=== PATIENT | female | born 1965 | race Caucasian/White ===

== ENCOUNTER 2018-08-04 18:02 | Observation (INO) ==
[2018-08-04 23:06] LABS: Basophils # 0.1 K/mcL (0.0-0.2); Basophils % 0.4 %; Eosinophils # 0.2 K/mcL (0.0-0.6); Eosinophils % 1.7 %; Hematocrit 33.8 % (35.3-44.9); Hemoglobin 11.1 g/dL (11.5-15.4); Immature Granulocytes % 0.5 % (0-4); Lymphocytes # 2.4 K/mcL (0.6-4.6); Lymphocytes % 18.2 %; Mean Corpuscular HGB Conc 32.8 g/dL (31.6-35.5); Mean Corpuscular Hemoglobin 33.9 pg (28.0-33.3); Mean Corpuscular Volume 103.4 fL (83.0-100.0); Monocytes # 0.4 K/mcL (0.0-1.3); Monocytes % 3.2 %; Neutrophils # 10.1 K/mcL (1.6-8.9); Platelet Count 237 K/mcL (140-400); Red Blood Count 3.27 M/mcL (3.82-4.97); Red Cell Distribution Width 14.6 % (11.5-14.5)
[2018-08-04 23:24] LABS: Calcium 9.7 mg/dL (8.6-10.3); Potassium 3.8 mEq/L (3.5-5.1)
[2018-08-04] MEDS ORDERED: Acetaminophen 325 MG TABLET PO PRN (23:29)
[2018-08-04] MEDS ORDERED: Naloxone 0.4 MG/ML INJ IVP PRN (23:29)
[2018-08-04] MEDS ORDERED: Ondansetron ODT 4 MG TAB.RAPDIS SL PRN (23:29)
--- NOTE | 2018-08-04 23:37 | Internal Med History&Physical ---
Date of Encounter: 08/05/18 Time of Encounter: 23:33 Internal Medicine - H&P: HPI Chief complaint: dizzy History of present illness: Ms. Constantino is a 53 year old female hx ESRD and treatment resistant HTN presented to [facility] for dizziness. Associated symptoms of blurry vision and heated feeling was sudden onset one hour after taking her four anti- hypertension medications . She has had one day of decreased energy, diffuse muscle weakness,and fatigue with increase in sleeping. Also sharp shoulder pain radiating from left to right. Denies syncopal episodes or falls. In ED, found to have BP 91/47 improved after NS bolus of 500ml. HR 67, RR18 and 98% RA. WBC 13.8 and HgB 11. CMP with Scr 11.3 and K 4. Completed UA and CT chest but no reports sent. EKG was read as NSR with no acute changes. PMHx includes HLD, anemia, and TRENTON refuses CPAP. [facility] is currently treating her for hematuria due to multiple renal calculi and recurrent pyelonephritis that has been asymptomatic in the past. States her most recent urine has not been dark. Former smoker quit 2-3 years ago. EtOH once a year, and denies illicit drug use. FMHx in mother of CKD, HTN, angina and arrhythmia. Past Med Surg Social Fam HX - Past Medical History Medical history: GERD, hyperlipidemia, hypertension Additional medical history: QUIT SMOKING 07/2015 Psychiatric history: no psych history - Past Surgical History Surgical History: other Additional surgical history: pd cath placement. 01/26/17 DX HYSTEROSCOPY/D&C @ [facility]/DR MAYS - Social History Smoking Status: Former smoker Smokeless Tobacco Status: No Alcohol use: none Drug use: none Internal Medicine - H&P: Meds Atorvastatin [Lipitor] 20 mg PO DAILY 11/09/15 [History] hydrALAZINE [HydrALAZINE] 100 mg PO Q8HR 11/09/15 [History] Calcitriol [Rocaltrol] 0.5 mcg PO QMWF 04/23/16 [History] cloNIDine HCl [CloNIDine HCl] 0.2 mg PO Q8H 04/23/16 [History] Furosemide [Lasix] 80 mg PO DAILY 01/26/17 [History] Gentamicin Sulfate 1 appl TP DAILY 01/26/17 [History] Carvedilol 12.5 mg PO DAILY 08/04/18 [History] Epoetin Elfego [Epogen] 1 unit SQ QWEEK 08/04/18 [History] Ferrous Sulfate [Iron] 1 tab PO BID 08/04/18 [History] Folic Acid/Vit B Complex and C [Dialyvite Tablet] 3,000 mg PO DAILY 08/04/18 [ History] Losartan/Hydrochlorothiazide [Losartan-Hctz 100-25 mg Tab] 1 tab PO DAILY [History] Sucroferric Oxyhydroxide [Velphoro] 1 tab PO Q8H 08/04/18 [History] 3 Allergy/AdvReac Type Severity Reaction Status Date / Time celecoxib [From Celebrex] Allergy Nausea Verified 01/26/17 13:25 All Systems PM: A 10-system review of systems was performed and is negative for pertinent findings except as documented above in the HPI. - Constitutional Constitutional: fatigue, no chills, no fever(s), no lethargy - EENT Eyes: blurry vision, no loss of vision, no tunnel vision - Cardiovascular Cardiovascular ROS IM: lightheadedness, no chest pain, no dyspnea, no edema, no palpitations, no syncope - Respiratory Respiratory: no cough, no dyspnea, no wheezing - Gastrointestinal Gastrointestinal: no cramping, no diarrhea, no nausea, no vomiting - Genitourinary Genitourinary: no difficulty urinating, no difficulty voiding, no dysuria, no hematuria, no urinary frequency - Musculoskeletal Musculoskeletal ROS IM: arthralgias, muscle cramps, muscle weakness, no numbness , no tingling - Neurological Neurological ROS: no confusion, no frequent falls, no headache(s) - Constitutional Vitals: Temp Pulse Resp BP Pulse Ox 97.8 F 54 17 157/78 100 08/04/18 20:52 08/04/18 20:52 08/04/18 20:52 08/04/18 20:52 08/04/18 20:52 General appearance: Present: cooperative, A&O X 3, no acute distress, obese, answers questions appropriately Exam: laying comfortably in bed - Head Head exam: Present: atraumatic, normocephalic - ENT ENT exam: Present: mucous membranes moist, normal oropharynx - Respiratory Respiratory exam: Present: CTAB. Absent: rales, wheezes - Cardiovascular Cardiovascular exam: Present: +S1, +S2, systolic murmur. Absent: bradycardia, tachycardia - GI/Abdominal GI/Abdominal exam: Present: distended, normal bowel sounds. Absent: guarding, mass, rigid, tenderness, no peritoneal signs - Extremities Exam Extremities exam: Present: full ROM, normal inspection, radial pulses palpable and symmetrical. Absent: pedal edema, tenderness - Back Exam Back exam: Present: full ROM, normal inspection. Absent: CVA tenderness (L), CVA tenderness (R), vertebral tenderness - Psychiatric Psychiatric exam: Present: normal affect, normal mood - Skin Skin exam: Present: normal color. Absent: erythema, excoriation, warm Additional comments: PD site clean with out erythema or discharge, is not tender Internal Med - H&P Results - Labs CBC & Chem 7: 08/04/18 22:48 08/04/18 22:48 Labs: Short CBC 08/04/18 Range/Units 22:48 WBC 13.2 H (4.3-11.1) K/mcL Hgb 11.1 L (11.5-15.4) g/dL Hct 33.8 L (35.3-44.9) % Plt Count 237 (140-400) K/mcL Neutrophils # 10.1 H (1.6-8.9) K/mcL BMP 08/04/18 22:48 Sodium 135 L Potassium 3.8 Chloride 100 Carbon Dioxide 22 L BUN 64 H Creatinine 10.95 H Glucose 118 H Calcium 9.7 - Assessment and plan (1) ESRD (end stage renal disease) Current Visit: Yes Status: Acute Assessment and plan: Scr10.95 with baseline 7-8. Normal potassium 3.8 - Per Nephrology's recommendations Dr Hutton; skip PD tonight due to episodic hypotension. Kalemia is normal and this does not need manual exchange. - Please allow patient to take her own vitamins from home (2) Hypotension Current Visit: Yes Status: Acute Assessment and plan: Possibly due to combination PD and multiple antihypertensive medications. - hold clonidine, lasix 80, hydralazine 100mg q 8, and losartan - HCTZ - nephrology consulted- will appreciate recommendations Qualifiers: Hypotension type: hypotension due to drug Qualified Code(s): I95.2 - Hypotension due to drugs (3) Hypertension Current Visit: Yes Status: Acute Qualifiers: Hypertension type: essential hypertension Qualified Code(s): I10 - Essential (primary) hypertension (4) Anemia Current Visit: Yes Status: Acute Assessment and plan: Due to ESRD. HgB 11.1 with baseline of 9-10. Patient will receive weekly EOP when due. - monitor with repeat CBCs Qualifiers: Anemia type: unspecified type Qualified Code(s): D64.9 - Anemia, unspecified (5) Elevated WBC count Current Visit: Yes Status: Acute Assessment and plan: WBC 13.0 with no apparent source of infection possibly reactive to PD. Given hsitory of recurrent asymptomatic pylonephritis and knwon presence of nephrolithiasis will obtain UA. Does not meet SIRs - chest CT at [facility] - repeat UA Qualifiers: Leukocytosis type: unspecified Qualified Code(s): D72.829 - Elevated white blood cell count, unspecified (6) Back pain Current Visit: Yes Status: Acute Assessment and plan: Unknown etiology Qualifiers: Back pain location: back pain in other location Qualified Code(s): M54.9 - Dorsalgia, unspecified; G89.29 - Other chronic pain (7) DVT prophylaxis Current Visit: Yes Status: Acute Assessment and plan: scds - Time Spent With Patient Total time spent is greater than 50% in coordination of care (as documented) at patient's floor/unit and/or counseling patient:
[2018-08-04] MEDS: SUCROFERRIC OXYHYDROXIDE PO SCH (23:39)
[2018-08-05 00:31] LABS: Bilirubin,Urine Negative (Negative); Clarity,Urine Cloudy (Clear); Color,Urine Yellow (Yellow); Glucose,Urine (UA) Normal (Normal)
[2018-08-05 00:32] LABS: Blood,Urine Negative (Negative); Hyaline Casts,Urine None Seen per lpf (None-Few); Ketones,Urine Negative (Negative); Leukocyte Esterase,Urine Large (Negative); Nitrite,Urine Negative (Negative); PH,Urine 6.5 pH Units (5.0-8.0); Protein,Urine 30 mg/dL (Neg-Trace); Specific Gravity,Urine 1.006 (1.010-1.025); Squamous Epithelial Cell,Urine Many per lpf (None-Few); Urobilinogen,Urine Normal (Normal); WBC,Urine TNTC per hpf (0-3)
[2018-08-05 00:33] LABS: Bacteria,Urine Many per hpf (None-Few)
[2018-08-05] MEDS: Cholecalciferol (D-3) 1,000 UNIT TABLET PO SCH (07:59)
[2018-08-05] MEDS: SUCROFERRIC OXYHYDROXIDE PO SCH ×2 (08:00→12:17)
[2018-08-05] MEDS: DIALYVITE PO SCH (08:01)
--- NOTE | 2018-08-05 08:31 | Internal Med Progress Note ---
<AlvaradoLynn colonroque - Last Filed: 08/05/18 08:55> Hospitalist Progress Note - Encounter Date of Encounter: 08/05/18 Time of Encounter: 08:31 - Subjective Interval History: 53-year-old female evaluated at bedside. She denies nausea, vomiting, diarrhea , fever, chills, chest pain, shortness of breath. She denies dysuria, suprapubic pain. - Exam Vitals: Temp Pulse Resp BP Pulse Ox 97.9 F 59 16 123/62 95 08/05/18 07:20 08/05/18 07:20 08/05/18 07:20 08/05/18 07:20 08/05/18 07:20 Exam: Gen.: alert and oriented X3, no acute distress, laying comfortably in bed CV: regular rate and rhythm, no murmurs, rubs, gallops. Respiratory: clear to auscultation bilaterally abdomen: soft, nondistended, nontender, bowel sounds present extremities: no cyanosis or edema - Assessment and Plan (1) Hypotension Current Visit: Yes Status: Acute Assessment and Plan: 53-year-old female with history of ESRD on peritoneal dialysis presents with hypotension and dizziness, blurry vision after taking her blood pressure meds at home. In emergency department, her blood pressure was noted to be 91/47. Home blood pressure medications include hydralazine, clonidine, losartan/ hydrochlorothiazide. is also on Lasix. Current blood pressure normal. Of note, patient does have history of sleep apnea but refuses CPAP. Plan: appreciate nephrology recommendations regarding blood pressure medication adjustment educated on importance of CPAP use to prevent further hypertension continue to hold blood pressure medications. (2) Leukocytosis Current Visit: Yes Status: Acute Assessment and Plan: WBC of 14.3 patient is not currently meets sepsis criteria. Urinalysis sample was contaminated, showed many bacteria, WBC, leukocyte esterase-likely asmptomatic bacteriuria. Plan: 2V view chest x-ray pending repeat urinalysis with straight catheterization repeat UA with reflex culture continue to monitor (3) ESRD (end stage renal disease) Current Visit: Yes Status: Acute Assessment and Plan: Patient is on peritoneal dialysis at home. Per nephrology recommendations, dialysis was held last night. Plan: await further nephrology recommendations regarding dialysis (4) Anemia Current Visit: Yes Status: Acute Assessment and Plan: Hemoglobin currently around baseline. Likely multifactorial with anemia of chronic disease in setting of ESRD, history of iron deficiency anemia. MCV 103.8 Plan: continue iron supplementation check B-12 and folate levels EPO per nephrology (5) Asymptomatic bacteriuria Current Visit: Yes Status: Acute Assessment and Plan: Plan as above (6) DVT prophylaxis Current Visit: Yes Status: Acute Assessment and Plan: Heparin SQ (7) TRENTON (obstructive sleep apnea) Current Visit: Yes Status: Acute Assessment and Plan: Patient refuses CPAP, education given - Time Spent with Patient Total time spent is greater than 50% in coordination of care (as documented) at patient's floor/unit and/or counseling patient: Internal Medicine: Result - Labs CBC & Chem 7: 08/04/18 22:48 08/04/18 22:48 Labs: Short CBC 08/04/18 Range/Units 22:48 WBC 13.2 H (4.3-11.1) K/mcL Hgb 11.1 L (11.5-15.4) g/dL Hct 33.8 L (35.3-44.9) % Plt Count 237 (140-400) K/mcL Neutrophils # 10.1 H (1.6-8.9) K/mcL BMP 08/04/18 22:48 Sodium 135 L Potassium 3.8 Chloride 100 Carbon Dioxide 22 L BUN 64 H Creatinine 10.95 H Glucose 118 H Calcium 9.7 Urine 08/05/18 Range/Units 00:05 Urine Color Yellow (Yellow) Urine Clarity Cloudy A (Clear) Urine pH 6.5 (5.0-8.0) pH Units Ur Specific Purchase 1.006 L (1.010-1.025) Urine Protein 30 H (Neg-Trace) mg/dL Urine Glucose (UA) Normal (Normal) mg/dL Consult Discharge Plan - Plan Referrals: NONE,PCP [Primary Care Provider] - <Daksha Lopez - Last Filed: 08/05/18 15:35> Hospitalist Progress Note - Encounter Date of Encounter: 08/05/18 - Exam Vitals: Temp Pulse Resp BP Pulse Ox 98.2 F 58 16 166/79 98 08/05/18 14:56 08/05/18 14:56 08/05/18 14:56 08/05/18 14:56 08/05/18 14:56 - Assessment and Plan (1) ESRD (end stage renal disease) Current Visit: Yes Status: Chronic (2) Hypotension Current Visit: Yes Status: Acute (3) DVT prophylaxis Current Visit: Yes Status: Acute (4) Anemia Current Visit: Yes Status: Acute (5) Leukocytosis Current Visit: Yes Status: Acute (6) Asymptomatic bacteriuria Current Visit: Yes Status: Acute (7) TRENTON (obstructive sleep apnea) Current Visit: Yes Status: Acute - Time Spent with Patient Total time spent is greater than 50% in coordination of care (as documented) at patient's floor/unit and/or counseling patient: Internal Medicine: Result - Labs CBC & Chem 7: 08/05/18 08:39 08/05/18 08:39 Labs: Short CBC 08/04/18 08/05/18 Range/Units 22:48 08:39 WBC 13.2 H 14.3 H (4.3-11.1) K/mcL Hgb 11.1 L 10.9 L (11.5-15.4) g/dL Hct 33.8 L 33.1 L (35.3-44.9) % Plt Count 237 241 (140-400) K/mcL Neutrophils # 10.1 H 11.1 H (1.6-8.9) K/mcL BMP 08/04/18 08/05/18 22:48 08:39 Sodium 135 L 136 Potassium 3.8 4.0 Chloride 100 99 Carbon Dioxide 22 L 22 L BUN 64 H 71 H Creatinine 10.95 H 11.29 H Glucose 118 H 152 H Calcium 9.7 9.9 Urine 08/05/18 08/05/18 Range/Units 00:05 12:57 Urine Color Yellow Yellow (Yellow) Urine Clarity Cloudy A Cloudy A (Clear) Urine pH 6.5 6.5 (5.0-8.0) pH Units Ur Specific Purchase 1.006 L 1.011 (1.010-1.025) Urine Protein 30 H 100 H (Neg-Trace) mg/dL Urine Glucose (UA) Normal Normal (Normal) mg/dL - Impressions Impressions Chest X-Ray 08/05/18 09:15 IMPRESSION: No acute cardiopulmonary process. D/ / Anatoliy Joe MD / Anatoliy Joe MD Interpreting Provider: Anatoliy Joe MD - Attending Attestation I examined this patient and my medical decision-making was reviewed with the Resident Physician Dr. Orozco. I agree with the documented findings, disposition and treatment plan as described except to the extent set forth below. 53-year-old female with history of ESRD on peritoneal dialysis presents with hypotension and dizziness, blurry vision after taking her blood pressure meds at home. Patient was admitted in the hospital, and held all her hypertensive medications. Her blood pressure improved today. Patient denied of any abdominal pain / chest pain/ shortness of breath. It reviewed all her blood pressure medications with wet pan operator, going to discontinue clonidine and hydralazine. Will resume losartan and low dose of Lasix. Continue close monitoring for today. Gen: A, Ao x3 Chest: diminished breath sounds bilaterally, no wheezing heart: S1 S2+ <Aileen Orozco - Last Filed: 08/05/18 08:55> (1) Hypotension Qualifiers: Hypotension type: hypotension due to drug Qualified Code(s): I95.2 - Hypotension due to drugs (2) Leukocytosis Qualifiers: Leukocytosis type: unspecified Qualified Code(s): D72.829 - Elevated white blood cell count, unspecified (4) Anemia Qualifiers: Anemia type: unspecified type Qualified Code(s): D64.9 - Anemia, unspecified <ThallapanChavo youssefbu - Last Filed: 08/05/18 15:35> (2) Hypotension Qualifiers: Hypotension type: hypotension due to drug Qualified Code(s): I95.2 - Hypotension due to drugs (4) Anemia Qualifiers: Anemia type: unspecified type Qualified Code(s): D64.9 - Anemia, unspecified (5) Leukocytosis Qualifiers: Leukocytosis type: unspecified Qualified Code(s): D72.829 - Elevated white blood cell count, unspecified
[2018-08-05 09:08] LABS: Basophils # 0.1 K/mcL (0.0-0.2); Basophils % 0.3 %; Eosinophils # 0.3 K/mcL (0.0-0.6); Eosinophils % 1.9 %; Hematocrit 33.1 % (35.3-44.9); Hemoglobin 10.9 g/dL (11.5-15.4); Immature Granulocytes % 0.3 % (0-4); Lymphocytes # 2.3 K/mcL (0.6-4.6); Lymphocytes % 15.7 %; Mean Corpuscular HGB Conc 32.9 g/dL (31.6-35.5); Mean Corpuscular Hemoglobin 34.2 pg (28.0-33.3); Mean Corpuscular Volume 103.8 fL (83.0-100.0); Mean Platelet Volume 9.1 fL (9.4-12.4); Monocytes # 0.6 K/mcL (0.0-1.3); Monocytes % 3.8 %; Neutrophils # 11.1 K/mcL (1.6-8.9); Platelet Count 241 K/mcL (140-400); Red Blood Count 3.19 M/mcL (3.82-4.97); Red Cell Distribution Width 14.4 % (11.5-14.5)
[2018-08-05 09:25] LABS: % Iron Saturation 32 % (15-50); Iron 70 mcg/dL (50-170); Transferrin 158 mg/dL (203-362)
[2018-08-05 09:26] LABS: Calcium 9.9 mg/dL (8.6-10.3)
[2018-08-05 09:55] LABS: Vitamin B12 1068 pg/mL (250-1100)
[2018-08-05 10:11] LABS: Ferritin 851 ng/mL (10-120)
[2018-08-05 10:29] LABS: Hepatitis B Surface Antigen Nonreactive (Nonreactive)
[2018-08-05] MEDS: *HR* Heparin 5,000 UNIT/ML VIAL SQ SCH ×2 (10:54→17:45)
[2018-08-05 11:02] LABS: Folate > 22.3 ng/mL (3.0-16.0)
--- NOTE | 2018-08-05 11:42 | Nephrology Consult Note ---
Date of Encounter: 08/05/18 Time of Encounter: 10:30 Assessment and Plan (1) Hypotension Current Visit: Yes Status: Acute Suspect multifactorial etiology from UF of PD and as a possible consequence of with her longstanding regimen for resistant HTN. Will not resume Clonidine, and will not resume HCTZ or Hydralazine. Restart Losartan (she has some residual renal function and still makes urine; no recent hyperkalemia) at 50mg po daily (not at 100mg); continue Carvedilol 12.5mg po bid (my [facility] notes show it's typically BID on her home dosing), and lasix but at 40mg po daily. If asymptomatic by tomorrow then reasonable for D/C and I'd be happy to help further titrate her antihypertensive medications as an outpt. Mariam I've ordered her PD via cycler and to use Dianeal 1.5%, which does not remove as much volume. Qualifiers: Hypotension type: hypotension due to drug Qualified Code(s): I95.2 - Hypotension due to drugs (2) ESRD (end stage renal disease) Current Visit: Yes Status: Chronic I reviewed her [facility] records in detail and ordered PD cycler tonight to similarly mirror her home/typical PD regimen: 4 fills at 2000mL ove 8.5-9hr. Last night when she presented, I had held her PD d/t the recent dizziness. (3) Hypertension Current Visit: Yes Status: Chronic Hx of Resistant HTN in the setting of ESRD Qualifiers: Hypertension type: essential hypertension Qualified Code(s): I10 - Essential (primary) hypertension (4) Secondary hyperparathyroidism (of renal origin) Current Visit: Yes Status: Chronic Continue her Calcitriol and home Velphoro for Hyperphosphatemia. (5) Anemia due to stage 5 chronic kidney disease Current Visit: Yes Status: Chronic Goal Hgb is 10-11, and will not add EPO at this time, as she just recently received her outpt dosing. Continue her home Iron pills. (6) Left renal atrophy Current Visit: Yes Status: Chronic In Jun, she was noted to have a large left renal calculus and associated left renal atrophy. She has seen [facility] and is being evaluated for a complex left nephrectomy surgery from the retroperitonium so as to avoid interfering with the anterior/periotoneal space (and therefore she could continue PD -- she has previously verbalized that she would never ever want HD, even temporarily). Her UA is likely to be contaminated and she has no symptoms of a UTI and has never had Peritonitis nor active fibrin or other signs of peritonitis, so I do not see the utility of a straight cath for UA at this point. The pt said she was told she was going to have that test performed. Yes a straight cath UA is the most accurate to avoid squamous cells/contamination, but being asymptomatic with a known nidus (i.e. the left renal calculus), then would not straight cath her at this time. (7) Renal calculus, left Current Visit: Yes Status: Chronic History of Present Illness - Reason for Consult Consult date: 08/04/18 end stage renal disease Requesting physician: [place] Patton - Chief Complaint Dizziness - History of Present Illness Trinity Constantino is a very pleasant 53 y/o female well-known to me with a pmh of ESRD on CCPD, Resistant HTN, Left Renal Atrophy/Large Calculus, SHPT, Hyperphosphatemia, T2DM and et al who presented with symptomatic dizziness while at work. She was transferred last night to [facility]. She last completed PD two night ago, and she denied seeing Fibrin, or having Abd pain or recent peritonitis. She has been seeing [facility] Dr. Holder for left renal atrophy/large calculus and was recent referred to [facility] for second opinion in the coming weeks. I also logged into the [employer] EHR mobile obi and reviewed her weights, BPs and see that she's lost a few kgs over the last 3-4 months. She has been on a salazar regimen for resistant HTN for quite sometime. She still makes urine, but not as much as a few years ago, she affirmed. No recent swelling, she said. Her vision was affected but this and the dizziness has improved while hold BP meds and PD last night (I spoke with the Night Hospitalist last night and recommended holding PD). She did not affirm CP, N/V this AM or dysuria. Her Troponins were negative. Discussed with the Hospitalist today in detail. Past Med Surg Social Fam HX - Past Medical History Medical history: GERD, hyperlipidemia, hypertension Additional medical history: QUIT SMOKING 07/2015 Psychiatric history: no psych history - Past Surgical History Surgical History: other Additional surgical history: pd cath placement. 01/26/17 DX HYSTEROSCOPY/D&C @ [facility]/DR MAYS - Social History Smoking Status: Former smoker Smokeless Tobacco Status: No Alcohol use: none Drug use: none Medications and Allergies Atorvastatin [Lipitor] 20 mg PO DAILY 11/09/15 [History] hydrALAZINE [HydrALAZINE] 100 mg PO Q8HR 11/09/15 [History] Calcitriol [Rocaltrol] 0.5 mcg PO QMWF 04/23/16 [History] cloNIDine HCl [CloNIDine HCl] 0.2 mg PO Q8H 04/23/16 [History] Furosemide [Lasix] 80 mg PO DAILY 01/26/17 [History] Gentamicin Sulfate 1 appl TP DAILY 01/26/17 [History] Carvedilol 12.5 mg PO DAILY 08/04/18 [History] Epoetin Elfego [Epogen] 1 unit SQ QWEEK 08/04/18 [History] Ferrous Sulfate [Iron] 1 tab PO BID 08/04/18 [History] Folic Acid/Vit B Complex and C [Dialyvite Tablet] 3,000 mg PO DAILY 08/04/18 [ History] Losartan/Hydrochlorothiazide [Losartan-Hctz 100-25 mg Tab] 1 tab PO DAILY [History] Sucroferric Oxyhydroxide [Velphoro] 1 tab PO Q8H 08/04/18 [History] 3 Allergy/AdvReac Type Severity Reaction Status Date / Time celecoxib [From Celebrex] Allergy Nausea Verified 01/26/17 13:25 Review of Systems All Systems: reviewed and no additional remarkable complaints except as stated Exam - Vital Signs Vital signs: Initial Vital Signs Temp Pulse Resp BP Pulse Ox 97.8 F 54 17 157/78 100 08/04/18 20:52 08/04/18 20:52 08/04/18 20:52 08/04/18 20:52 08/04/18 20:52 Vital Signs - Last 8 Hours Temp Pulse Resp BP Pulse Ox 08/05/18 10:37 98.2 F 61 16 132/62 98 08/05/18 07:20 97.9 F 59 16 123/62 95 08/05/18 04:03 98.1 F 69 17 136/62 97 Intake and Output 08/04/18 08/05/18 08/05/18 23:59 07:59 15:59 Intake Total 0 / 0 420 / 420 Output Total 275 / 275 150 / 150 Balance -275 / -275 -150 / -150 420 / 420 Intake: Oral 0 / 0 420 / 420 Output: Urine 275 / 275 150 / 150 Other: Meal Breakfast Percent of Meal Consumed 35% # Voids 1 Weight 75.523 kg - General Appearance General appearance: well-developed, well-nourished, appears started age EENT: ATNC, PERRL, mucous membranes moist Neck: no carotid bruit, supple Respiratory: clear Cardiology: no edema, regular rate, regular rhythm, normal S1, normal S2 - Dialysis Access Additional Comments: PD catheter without exitsite discomfort or erythema Gastrointestinal: normoactive bowel sounds, no tenderness, no guarding, obese Integumentary: no rash, warm and dry Neurologic: no focal deficit, no asterixis, alert and oriented x3 Musculoskeletal: no deformities, no erythema, no cyanosis, no clubbing Psychiatric: mood/affect appropriate, cooperative Results - Lab Results 08/05/18 08:39 08/05/18 08:39 Most recent lab results Calcium 9.9 mg/dL (8.6-10.3) 08/05/18 08:39 I reviewed the labs, vitals, med lists, progress notes, and also logged into the [employer] Mobile [employer] and reviewed her labs, vitals and encounters at [facility]. Consult Discharge Plan - Plan Referrals: NONE,PCP [Primary Care Provider] -
[2018-08-05] MEDS ORDERED: Perit. Dialysis with Dex 1.5 % 12,000 ML PERITONEAL ONE ×2 (12:03→22:00)
[2018-08-05 13:09] LABS: Bilirubin,Urine Negative (Negative); Blood,Urine Negative (Negative); Clarity,Urine Cloudy (Clear); Color,Urine Yellow (Yellow); Glucose,Urine (UA) Normal (Normal); Ketones,Urine Negative (Negative); Leukocyte Esterase,Urine Large (Negative); Nitrite,Urine Negative (Negative); PH,Urine 6.5 pH Units (5.0-8.0); Protein,Urine 100 mg/dL (Neg-Trace); Specific Gravity,Urine 1.011 (1.010-1.025); Urobilinogen,Urine Normal (Normal)
[2018-08-05 13:13] LABS: Bacteria,Urine Many per hpf (None-Few); Hyaline Casts,Urine None Seen per lpf (None-Few); Squamous Epithelial Cell,Urine Many per lpf (None-Few); WBC,Urine 50-100 per hpf (0-3)
[2018-08-05] MEDS: Furosemide 40 MG TABLET PO SCH (13:56)
[2018-08-05] MEDS: Gentamicin Oint 15 GM TUBE TP SCH (16:19)
[2018-08-06] MEDS: *HR* Heparin 5,000 UNIT/ML VIAL SQ SCH (06:07)
[2018-08-06 06:14] LABS: Basophils # 0.1 K/mcL (0.0-0.2); Basophils % 0.4 %; Eosinophils # 0.3 K/mcL (0.0-0.6); Eosinophils % 1.9 %; Hematocrit 36.5 % (35.3-44.9); Hemoglobin 12.1 g/dL (11.5-15.4); Immature Granulocytes % 0.5 % (0-4); Lymphocytes # 2.2 K/mcL (0.6-4.6); Lymphocytes % 16.4 %; Mean Corpuscular HGB Conc 33.2 g/dL (31.6-35.5); Mean Corpuscular Volume 102.5 fL (83.0-100.0); Mean Platelet Volume 9.1 fL (9.4-12.4); Monocytes # 0.5 K/mcL (0.0-1.3); Monocytes % 3.8 %; Neutrophils # 10.4 K/mcL (1.6-8.9); Platelet Count 265 K/mcL (140-400); Red Blood Count 3.56 M/mcL (3.82-4.97); Red Cell Distribution Width 14.6 % (11.5-14.5)
[2018-08-06 06:31] LABS: Calcium 10.2 mg/dL (8.6-10.3); Potassium 3.7 mEq/L (3.5-5.1)
--- NOTE | 2018-08-06 07:26 | Discharge Summary ---
<Aileen Orozco - Last Filed: 08/06/18 12:07> - NOTES TO OUTPATIENT PROVIDER Notes to Outpatient Provider: please continue to titrate blood pressure medications as outpatient. thank you. Orders not resulted at time of discharge: Pending orders 08/04/18 23:29 ECG 12 lead ECG [ECG] Stat 08/05/18 08:41 Hepatitis B Surface Antibody Stat Hepatitis B Surface Antigen Stat Date of Encounter: 08/06/18 Time of Encounter: 07:21 - Discharge Diagnosis (1) Hypotension Priority: Primary Status: Acute Qualifiers: Hypotension type: hypotension due to drug Qualified Code(s): I95.2 - Hypotension due to drugs (2) Leukocytosis Priority: Secondary Status: Acute Qualifiers: Leukocytosis type: unspecified Qualified Code(s): D72.829 - Elevated white blood cell count, unspecified (3) ESRD (end stage renal disease) Priority: Secondary Status: Chronic (4) Anemia Priority: Secondary Status: Acute Qualifiers: Anemia type: unspecified type Qualified Code(s): D64.9 - Anemia, unspecified (5) Asymptomatic bacteriuria Priority: Secondary Status: Acute (6) DVT prophylaxis Priority: Secondary Status: Acute (7) TRENTON (obstructive sleep apnea) Priority: Secondary Status: Acute Hospital course: Ms. Constantino is a 53 year old female with past medical history of ESRD on peritoneal dialysis, treatment resistant hypertension, GERD, hyperlipidemia, TRENTON (refuses to wear CPAP), multiple renal stones and recurrent pyelonephritis that has been asymptomatic in the past. Patient arrived to [facility] on 08/04/18 with chief complaint of dizziness, blurry vision, heated feeling that was sudden onset about one hour after taking her for antihypertensive medications. She also reported decreased energy, diffuse muscle weakness and fatigue. After arrival to the emergency department, she was found to have blood pressure of 91/47 that improved after a normal saline bolus of 500 mL. She was admitted for further management and workup. Consult to nephrology was made, and her peritoneal dialysis was held the 1st night she was in the hospital. Nephrology has made the following recommendations regarding changes in her pressure regimen: stopped clonidine stop hydrochlorothiazide stop hydralazine restart losartan but at 50 mg PO daily continue carvedilol 12.5 mg PO b.i.d. continue Lasix but at 40 mg PO daily Patient was asymptomatic after the changes have been made to her medications. She does have chronic history of anemia for which she takes Epo. 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 Patient did have slight leukocytosis during her hospitalization. Chest x-ray was normal, patient did not have any signs of abdominal pain, and she did not meet sepsis criteria. Her urinalysis was a contaminated sample, and she does have a history of chronic pyelonephritis. She had no symptoms of UTI. Patient was instructed to continue her normally scheduled peritoneal dialysis. She will follow up with nephrology and her primary care provider outpatient for further titration of her blood pressure medications as needed. Discharge discussed with: patient - Time Spent with Patient Total time spent providing and/or coordinating discharge services: Less than 30 minutes - Discharge Medications Prescriptions: Carvedilol 12.5 mg PO BID #60 tab Furosemide [Lasix] 40 mg PO DAILY #30 tablet hydrALAZINE [HydrALAZINE] 25 mg PO TID #90 tablet Losartan Potassium [Cozaar] 50 mg PO DAILY #30 tab Home Medications: Atorvastatin [Lipitor] 20 mg PO DAILY 11/09/15 [History] Calcitriol [Rocaltrol] 0.5 mcg PO QMWF 04/23/16 [History] Gentamicin Sulfate 1 appl TP DAILY 01/26/17 [History] Epoetin Elfego [Epogen] 1 unit SQ QWEEK 08/04/18 [History] Ferrous Sulfate [Iron] 1 tab PO BID 08/04/18 [History] Folic Acid/Vit B Complex and C [Dialyvite Tablet] 3,000 mg PO DAILY 08/04/18 [ History] Sucroferric Oxyhydroxide [Velphoro] 1 tab PO Q8H 08/04/18 [History] Carvedilol 12.5 mg PO BID #60 tab 08/06/18 [Rx] Furosemide [Lasix] 40 mg PO DAILY #30 tablet 08/06/18 [Rx] Losartan Potassium [Cozaar] 50 mg PO DAILY #30 tab 08/06/18 [Rx] hydrALAZINE [HydrALAZINE] 25 mg PO TID #90 tablet 08/06/18 [Rx] Allergies/Adverse Reactions: 3 Allergy/AdvReac Type Severity Reaction Status Date / Time celecoxib [From Celebrex] Allergy Nausea Verified 01/26/17 13:25 Date of admission: 08/04/18 20:38 Primary care physician: PCP NONE Consults: 08/04/18 23:32 Consult to Nephrology [CONS] Routine Consulting Provider: Kidney Margareth/PABLO/DAVIAN/TORO Reason for Consult: hypotension in PD clinic patient Call Completed: Yes 08/05/18 12:15 Consult to Dialysis [CONS] ONCE Discharging clinician: Aileen Orozco Anticipated date of discharge: 08/06/18 - Constitutional Vitals: Temp Pulse Resp BP Pulse Ox 98.1 F 75 16 177/70 98 08/06/18 04:28 08/06/18 04:28 08/06/18 04:28 08/06/18 04:28 08/06/18 04:28 General appearance: Present: cooperative, A&O X 3, no acute distress, obese, answers questions appropriately Exam: Appears to be in no acute distress. - Head Head exam: Present: atraumatic, normocephalic - Neck Neck exam general surgery: Present: supple, trachea midline - Respiratory Respiratory exam: Present: CTAB - Cardiovascular Cardiovascular exam: Present: RRR, +S1, +S2 - GI/Abdominal GI/Abdominal exam: Present: normal bowel sounds, soft. Absent: distended, tenderness - Extremities Exam Extremities exam: Absent: cyanotic, pedal edema - Neurological Exam Neurological exam: Present: alert, oriented X3, no focal deficits - Psychiatric Psychiatric exam: Present: normal affect, normal mood - Skin Skin exam: Present: intact - Patient Status Disposition: Home, Self-Care Condition: Good Functional capacity at discharge: independent ambulation Overall status at discharge: patient is back to baseline - Discharge Instructions Instructions: Hydralazine (By mouth), Hypotension (DC) Follow Up With: NONE,PCP [Primary Care Provider] - Chico Veliz DO [Partnered Physician] - Additional Instructions: Follow-up with her primary care provider within one week of discharge. Follow-up with your visual merchandising coordinator. Take all medications as prescribed. Please note that some of her blood pressure medications have been changed. Please do not take clonidine or hydrochlorothiazide or hydralazine anymore. Restart your losartan at 50mg PO daily (not 100mg); continue Carvedilol 12.5mg PO BID and take lasix 40mg PO daily. - Diet and Activity Activity: increase activity as tolerated Diet: other (renal diet) - VTE Documentation of Mechanical Device: Intermittent pneumatic compression device <Daksha Lopez - Last Filed: 08/06/18 14:14> Orders not resulted at time of discharge: Pending orders 08/04/18 23:29 ECG 12 lead ECG [ECG] Stat 08/05/18 08:41 Hepatitis B Surface Antibody Stat Hepatitis B Surface Antigen Stat Date of Encounter: 08/06/18 - Discharge Diagnosis (1) ESRD (end stage renal disease) Status: Chronic (2) Hypotension Status: Acute Qualifiers: Hypotension type: hypotension due to drug Qualified Code(s): I95.2 - Hypotension due to drugs (3) DVT prophylaxis Status: Acute (4) Anemia Status: Acute Qualifiers: Anemia type: unspecified type Qualified Code(s): D64.9 - Anemia, unspecified (5) Leukocytosis Status: Acute Qualifiers: Leukocytosis type: unspecified Qualified Code(s): D72.829 - Elevated white blood cell count, unspecified (6) Asymptomatic bacteriuria Status: Acute (7) [place] (obstructive sleep apnea) Status: Acute Hospital course: Ms. Constantino is a 53 year old female - Time Spent with Patient Total time spent providing and/or coordinating discharge services: Date of admission: 08/04/18 20:38 Primary care physician: PCP NONE Consults: 08/04/18 23:32 Consult to Nephrology [CONS] Routine Consulting Provider: Kidney Margareth/PABLO/DAVIAN/TORO Reason for Consult: hypotension in PD clinic patient Call Completed: Yes 08/05/18 12:15 Consult to Dialysis [CONS] ONCE - Constitutional Vitals: Temp Pulse Resp BP Pulse Ox 98.0 F 67 16 144/81 99 08/06/18 08:18 08/06/18 08:18 08/06/18 08:18 08/06/18 09:52 08/06/18 08:18 - Attending Attestation I examined this patient and my medical decision-making was reviewed with the Resident Physician Dr. Orozco. I agree with the documented findings, disposition and treatment plan as described except to the extent set forth below. 53-year-old female with history of ESRD on peritoneal dialysis presents with hypotension and dizziness, blurry vision after taking her blood pressure meds at home. Patient was admitted in the hospital, and held all her hypertensive medications. Her blood pressure improved today. Patient denied of any abdominal pain / chest pain/ shortness of breath. Reviewed all her blood pressure medications with visual merchandising coordinator, going to discontinue clonidine. BP still slightly elevated with Losartan, coreg and Lasix. So started Hydralazine too. medically stable to d.c home today Gen: A, Ao x3 Chest: diminished breath sounds bilaterally, no wheezing heart: S1 S2+
[2018-08-06] MEDS ORDERED: SUCROFERRIC OXYHYDROXIDE 500 MG PO SCH (08:00)
[2018-08-06] MEDS: Cholecalciferol (D-3) 1,000 UNIT TABLET PO SCH (08:14)
[2018-08-06] MEDS: Furosemide 40 MG TABLET PO SCH (08:14)
[2018-08-06] MEDS: DIALYVITE PO SCH (08:15)
[2018-08-06] MEDS: Gentamicin Oint 15 GM TUBE TP SCH (08:22)
[2018-08-06] MEDS ORDERED: hydrALAZINE 25 MG TABLET PO SCH (08:28)
[2018-08-06 09:52] VITALS: BP 144/81
--- NOTE | 2018-08-06 10:43 | Nephrology Progress Note ---
Date of Encounter: 08/06/18 Time of Encounter: 12:00 - Assessment and Plan (1) Hypotension Status: Acute Resolved. Outpt Antihypertensive Rx titration is recommended. Okay to D/C today (Tuesday), and I'll plan to work with my outpt PD nurse to assist in titration of BP meds. Thank you. Suspect multifactorial etiology from UF of PD and as a possible consequence of with her longstanding regimen for resistant HTN. Will not resume Clonidine, and will not resume HCTZ but okay start resuming slowly her routine antihypertensives, as discussed with the Hospitalist -- I agree and would resume Hydralazine. Okay to D/C from a Nephroperspective and I'd be happy to help further titrate her antihypertensive medications as an outpt via the PD Nurse Anita, who will see the pt later this week for outpt PD routine care. Qualifiers: Hypotension type: hypotension due to drug Qualified Code(s): I95.2 - Hypotension due to drugs (2) ESRD (end stage renal disease) Status: Chronic She tolerated the PD regimen last of: 4 fills at 2000mL ove 8.5-9hr. (3) Hypertension Status: Chronic Hx of Resistant HTN in the setting of ESRD. See above. Qualifiers: Hypertension type: essential hypertension Qualified Code(s): I10 - Essential (primary) hypertension (4) Secondary hyperparathyroidism (of renal origin) Status: Chronic Continue her Calcitriol and home Velphoro for Hyperphosphatemia. (5) Anemia due to stage 5 chronic kidney disease Status: Chronic Goal Hgb is 10-11, and will not add EPO at this time, as she just recently received her outpt dosing. Continue her home Iron pills. (6) Left renal atrophy Status: Chronic In Jun, she was noted to have a large left renal calculus and associated left renal atrophy. She has seen [facility] and is being evaluated for a complex left nephrectomy surgery from the retroperitonium so as to avoid interfering with the anterior/periotoneal space (and therefore she could continue PD -- she has previously verbalized that she would never ever want HD, even temporarily). (7) Renal calculus, left Status: Chronic See above. Subjective Principal diagnosis: Transient Hypotension Interval history: Pt was s/e and she did not affirm N/V/D and reported no further dizziness or visual changes. She voiced that PD went smoothly with the cycler last night and no new abd symptoms were affirmed. Objective - Vital Signs Vital signs: Vital Signs Temp Pulse Resp BP Pulse Ox 08/06/18 09:52 144/81 08/06/18 08:18 98.0 F 67 16 184/82 99 08/06/18 04:28 98.1 F 75 16 177/70 98 08/05/18 23:36 98.2 F 64 16 137/55 99 08/05/18 22:12 98.3 F 15 196/79 08/05/18 19:07 98.8 F 62 16 145/74 99 08/05/18 14:56 98.2 F 58 16 166/79 98 Intake and Output 08/05/18 08/06/18 08/06/18 23:59 07:59 15:59 Intake Total 720 / 720 Balance 720 / 720 Intake: Oral 720 / 720 Other: Meal Dinner Percent of Meal Consumed 80% # Voids 1 Weight 75 kg - General Appearance Exam: General appearance: well-developed, well-nourished, appears started age EENT: ATNC, PERRL, mucous membranes moist Neck: no carotid bruit, supple Respiratory: clear Cardiology: no edema, regular rate, regular rhythm, normal S1, normal S2 - Dialysis Access Additional Comments: PD catheter without exitsite discomfort or erythema Gastrointestinal: normoactive bowel sounds, no tenderness, no guarding, obese Integumentary: no rash, warm and dry Neurologic: no focal deficit, no asterixis, alert and oriented x3 Musculoskeletal: no deformities, no erythema, no cyanosis, no clubbing Psychiatric: mood/affect appropriate, cooperative - Lab 08/06/18 05:08 08/06/18 05:08 Most recent lab results Calcium 10.2 mg/dL (8.6-10.3) 08/06/18 05:08 - VTE Documentation of Mechanical Device: Intermittent pneumatic compression device Consult Discharge Plan - Plan Instructions: Hydralazine (By mouth), Hypotension (DC) Additional Instructions: Follow-up with her primary care provider within one week of discharge. Follow-up with your senior application programmer. Take all medications as prescribed. Please note that some of her blood pressure medications have been changed. Please do not take clonidine or hydrochlorothiazide or hydralazine anymore. Restart your losartan at 50mg PO daily (not 100mg); continue Carvedilol 12.5mg PO BID and take lasix 40mg PO daily. Referrals: Chico Veliz DO [Partnered Physician] - NONE,PCP [Primary Care Provider] - Prescriptions: Carvedilol 12.5 mg PO BID #60 tab Furosemide [Lasix] 40 mg PO DAILY #30 tablet hydrALAZINE [HydrALAZINE] 25 mg PO TID #90 tablet Losartan Potassium [Cozaar] 50 mg PO DAILY #30 tab
[2018-08-07 04:03] LABS: Hepatitis B Surface Antibody 31.12 mIU/mL
--- NOTE | 2018-08-07 17:46 | Electrocardiograph Report ---
[address] [place] [id number] Test Date: 2018-08-05 Pat Name: Trinity Constantino Department: 109 Room: 2A25 Gender: F Second Facing Baster: : 1965 Requested By: Geneva Murray Order Number: [id number] Reading MD: Pratima Manzo Measurements Intervals [place] Rate: 72 P: 52 AK: 201 QRS: 11 QRSD: 102 T: 127 QT: 431 QTc: 455 Interpretive Statements SINUS RHYTHM LOW QRS VOLTAGE IN EXTREMITY LEADS SEPTAL MYOCARDIAL INFARCTION, PROBABLY OLD NONSPECIFIC ST AND T ABNORMALITIES Electronically Signed On 08-07-2018 17:44:02 EDT by Pratima Manzo
== END 2018-08-06 12:33 | disposition home or self-care (01) ==
LOC: INTOOBSV 20:38 → 2ANU 20:38
PROVIDERS: ADMIT Family Medicine; ATTEND Internal Medicine

== ENCOUNTER 2019-05-09 05:18 | Observation (INO) ==
[2019-05-09] MEDS ORDERED: *HR* OxyCODONE/APAP 5/325 TABLET PO PRN (12:30)
[2019-05-09] MEDS ORDERED: Acetaminophen 325 MG TABLET PO PRN ×2 (12:30→13:18)
[2019-05-09] MEDS ORDERED: Naloxone 0.4 MG/ML INJ IVP PRN (12:34)
--- NOTE | 2019-05-09 12:34 | Internal Med History&Physical ---
<Aileen Orozco - Last Filed: 05/09/19 14:08> Date of Encounter: 05/09/19 Time of Encounter: 12:32 Internal Medicine - H&P: HPI Chief complaint: abdominal pain Admitted From: Emergency Dept Plans for Post Hospital Care: Home History of present illness: Ms. Constantino is a 53 year old female with past medical history of ESRD on peritoneal dialysis, anemia, HTN, DM. Patient was a direct transfer from another hospital. She went to the hospital with chief complaint of abdominal pain with nausea and vomiting that started one day prior. Her abdominal pain was epigastric in nature. She states that she does not have a history of alcohol abuse and drinks very rarely. she has not had pancreatitis in the past. she has been on peritoneal dialysis for about four years and has never had history of peritonitis. patient initially went [facility] ED where she had initial workup done. There, she was found ot have lipase of 2838 and amylase of 203. She also had CT abdomen/donna showing cirrhotic liver with ascites. she denies fevers, chills, chest pain, shortness of breath, hematochezia, melena, hematuria. Past Med Surg Social Fam HX - Past Medical History Medical history: GERD, hyperlipidemia, hypertension Additional medical history: QUIT SMOKING 07/2015 Psychiatric history: no psych history - Past Surgical History Surgical History: other Additional surgical history: pd cath placement. 01/26/17 DX HYSTEROSCOPY/D&C @ [facility]/DR MAYS - Social History Smoking Status: Former smoker Smokeless Tobacco Status: No Alcohol use: none Drug use: none - Family History Mother Living Status: Age at : 76 Cause of : FELL BROKE BOTH ARMS, MRSA BACTEREMIA Hx Family Cardiac Disorders: Yes Hx Family Genitourinary Disorders: Yes Hx Family Musculoskeletal Disorders: Yes Hx Family Medical Disorders: Yes Internal Medicine - H&P: Meds Atorvastatin [Lipitor] 20 mg PO DAILY 11/09/15 [History] Epoetin Elfego [Epogen] 6,000 unit SQ TU 08/04/18 [History] Folic Acid/Vit B Complex and C [Dialyvite Tablet] 1 tab PO DAILY 08/04/18 [History] Carvedilol 12.5 mg PO BID #60 tab 08/06/18 [Rx] Omeprazole [PriLOSEC] 20 mg PO DAILY PRN 02/04/19 [History] Acetaminophen [Tylenol Arthritis] 650 mg PO Q6H PRN 05/09/19 [History] Ondansetron ODT [Zofran ODT] 4 mg SL TID 05/09/19 [History] Oxycodone HCl/Acetaminophen [Percocet 5-325 mg Tablet] 1 tab PO TID PRN 05/09/19 [History] Cholecalciferol (D-3) [Vitamin D] 2,000 unit PO DAILY 05/10/19 [History] Fexofenadine HCl 60 mg PO DAILY 05/10/19 [History] Fluticasone Propionate Nasal [Flonase] 50 mcg NS DAILY 05/10/19 [History] Losartan/Hydrochlorothiazide [Hyzaar 100-25 Tablet] 1 each PO DAILY 05/10/19 [History] Ropinirole HCl [Requip] 1.5 mg PO HS 05/10/19 [History] Sevelamer [Renvela] 2 - 3 tab PO AD 05/10/19 [History] Allergy/AdvReac Type Severity Reaction Status Date / Time celecoxib [From Celebrex] AdvReac Nausea Verified 05/10/19 11:00 All Systems PM: A 10-system review of systems was performed and is negative for pertinent findings except as documented above in the HPI. - Constitutional Constitutional: as per HPI - EENT Eyes: as per HPI Ears: as per HPI Nose, mouth and throat: as per HPI - Breasts Breasts: as per HPI - Cardiovascular Cardiovascular ROS IM: as per HPI - Respiratory Respiratory: as per HPI - Gastrointestinal Gastrointestinal: as per HPI - Genitourinary Genitourinary: as per HPI Menstruation: as per HPI - Musculoskeletal Musculoskeletal ROS IM: as per HPI - Integumentary Integumentary IM: as per HPI - Neurological Neurological ROS: as per HPI - Psychiatric Psychiatric: as per HPI - Endocrine Endocrine IM: as per HPI - Hematologic/Lymphatic Hematologic/Lymphatic: as per HPI - Allergic/Immunologic Allergic/Immunologic: as per HPI - Constitutional Vitals: Temp Pulse Resp BP Pulse Ox 97.5 F L 53 19 157/63 98 05/09/19 11:03 05/09/19 11:03 05/09/19 11:03 05/09/19 11:03 05/09/19 11:03 General appearance: Present: mild distress, A&O X 3, pleasant, no acute distress, answers questions appropriately Exam: alert and oriented x3 - Head Head exam: Present: atraumatic, normocephalic - Neck Neck exam general surgery: Present: supple, trachea midline - Respiratory Respiratory exam: Present: CTAB. Absent: rhonchi, wheezes - Cardiovascular Cardiovascular exam: Present: RRR, +S1, +S2. Absent: systolic murmur - GI/Abdominal GI/Abdominal exam: Present: normal bowel sounds, soft, tenderness (minimal epigastric tenderness to palpation). Absent: distended Additional comments: peritoneal dialysis catheter in place. no erythema or signs of infection noted. no signs of peritonitis noted. - Extremities Exam Extremities exam: Absent: cyanotic, pedal edema - Neurological Exam Neurological exam: Present: alert, oriented X3, no focal deficits, strengths equal and symetr throughout - Psychiatric Psychiatric exam: Present: normal affect, normal mood - Assessment and Plan (1) Abdominal pain Current Visit: Yes Status: Acute Assessment and plan: history of epigastric abdominal pain with nausea/vomiting. Amylase: 203 Lipase: 2838 CT abdomen from [facility] showed cirrhotic liver with ascites. etiology unclear, suspect early stages of pancreatitis but consider other factors as well. Plan: clear liquid diet gentle IV fluids, as patient is on dialysis pain/nausea control. Qualifiers: Abdominal location: epigastric Qualified Code(s): R10.13 - Epigastric pain (2) Anemia Current Visit: No Status: Acute Assessment and plan: chronic anemia. will re check CBC, as no labs were sent with her from [place]. Qualifiers: Anemia type: unspecified type Qualified Code(s): D64.9 - Anemia, unspecified (3) ESRD (end stage renal disease) Current Visit: No Status: Chronic Assessment and plan: consult to nephrology to assist with peritoneal dialysis. (4) HLD (hyperlipidemia) Current Visit: No Status: Chronic Assessment and plan: continue lipitor. Qualifiers: Hyperlipidemia type: unspecified Qualified Code(s): E78.5 - Hyperlipidemia, unspecified (5) Hypertension Current Visit: No Status: Chronic Assessment and plan: continue cozaar Qualifiers: Hypertension type: essential hypertension Qualified Code(s): I10 - Essential (primary) hypertension (6) Diabetes Current Visit: Yes Status: Acute Assessment and plan: low dose sliding scale insulin, ACHS accuchecks. Qualifiers: Diabetes mellitus type: type 2 Diabetes mellitus nerve specialist insulin use: unspecified nerve specialist insulin use status Diabetes mellitus complication status: with other specified complication Qualified Code(s): E11.69 - Type 2 diabetes mellitus with other specified complication (7) DVT prophylaxis Current Visit: No Status: Acute Assessment and plan: heparin sQ - Time Spent With Patient Total time spent is greater than 50% in coordination of care (as documented) at patient's floor/unit and/or counseling patient: <Meche Hollis Vishnu - Last Filed: 05/11/19 06:42> Date of Encounter: 05/09/19 Internal Medicine - H&P: HPI History of present illness: Ms. Constantino is a 53 year old female All Systems PM: A 10-system review of systems was performed and is negative for pertinent findings except as documented above in the HPI. - Constitutional Vitals: Temp Pulse Resp BP Pulse Ox 98 F 62 16 132/72 100 05/11/19 03:58 05/11/19 03:58 05/11/19 03:58 05/11/19 03:58 05/11/19 03:58 Internal Med - H&P Results - Labs CBC & Chem 7: 05/10/19 03:54 05/11/19 02:19 Labs: BMP 05/10/19 05/11/19 03:54 02:19 Sodium 139 139 Potassium 4.8 4.5 Chloride 100 101 Carbon Dioxide 22 L 22 L BUN 96 H 84 H Creatinine 9.89 H 9.45 H Glucose 123 H 106 H Calcium 8.9 9.5 Liver Function 05/10/19 Range/Units 03:54 Total Bilirubin 0.3 (0.3-1.0) mg/dL Direct Bilirubin 0.0 (0.0-0.2) mg/dL AST 11 L (13-39) Units/L ALT 11 (7-52) Units/L Alkaline Phosphatase 46 (34-104) Units/L Albumin 3.4 L (3.5-5.7) g/dL Urine 05/10/19 Range/Units 14:40 Urine Color Yellow (Yellow) Urine Clarity Clear (Clear) Urine pH 7.5 (5.0-8.0) pH Units Ur Specific Armstrong 1.011 (1.010-1.025) Urine Protein 100 H (Neg-Trace) mg/dL Urine Glucose (UA) Normal (Normal) mg/dL - Impressions ITS Impressions Liver Ultrasound 05/10/19 15:00 IMPRESSION: 1. Trace ascites. 2. No evidence of gallstones. 3. Atrophic right kidney. D/ / Anatoliy Joe MD / Anatoliy Joe MD Interpreting Provider: Anatoliy Joe MD - Assessment and Plan (1) ESRD (end stage renal disease) Current Visit: No Status: Chronic (2) Hypertension Current Visit: No Status: Chronic Qualifiers: Hypertension type: essential hypertension Qualified Code(s): I10 - Esse ntial (primary) hypertension (3) Anemia Current Visit: No Status: Chronic Qualifiers: Anemia type: unspecified type Qualified Code(s): D64.9 - Anemia, unspecified (4) Back pain Current Visit: No Status: Chronic Qualifiers: Back pain location: back pain in other location Chronicity: chronic Qualified Code(s): M54.9 - Dorsalgia, unspecified; G89.29 - Other chronic pain (5) TRENTON (obstructive sleep apnea) Current Visit: No Status: Chronic (6) HLD (hyperlipidemia) Current Visit: No Status: Chronic Qualifiers: Hyperlipidemia type: unspecified Qualified Code(s): E78.5 - Hyperlipidemia, unspecified (7) Diabetes Current Visit: Yes Status: Chronic Qualifiers: Diabetes mellitus type: type 2 Diabetes mellitus halfway insulin use: unspecified nerve specialist insulin use status Diabetes mellitus complication status: with other specified complication Qualified Code(s): E11.69 - Type 2 diabetes mellitus with other specified complication (8) Pancreatitis Current Visit: Yes Status: Resolved Qualifiers: Chronicity: acute Pancreatitis type: unspecified pancreatitis type Acute pancreatitis complication: no infection or necrosis Qualified Code(s): K85.90 - Acute pancreatitis without necrosis or infection, unspecified (9) UTI (urinary tract infection) Current Visit: Yes Status: Acute Qualifiers: Urinary tract infection type: site unspecified Hematuria presence: without hematuria Qualified Code(s): N39.0 - Urinary tract infection, site not specified - Time Spent With Patient Total time spent is greater than 50% in coordination of care (as documented) at patient's floor/unit and/or counseling patient: - Attending Attestation I performed a history and physical examination of the patient and discussed his management with the resident. I reviewed the residents note and agree with the documented findings and plan of care.
[2019-05-09] MEDS ORDERED: Dextrose Gel 15 GM/37.5 ML TUBE PO PRN ×2 (12:37)
[2019-05-09] MEDS ORDERED: *HR* Dextrose 50 % in Water (Syg) 50 ML SYRINGE IVP PRN (12:37)
[2019-05-09] MEDS ORDERED: D5% in Water 1,000 ML IVC PRN (12:37)
[2019-05-09] MEDS: Renal Vitamin 1 CAP CAPSULE PO SCH (13:12)
[2019-05-09 14:49] LABS: Basophils % 0.1 %; Eosinophils % 0.3 %; Hematocrit 27.2 % (35.3-44.9); Hemoglobin 8.6 g/dL (11.5-15.4); Immature Granulocytes % 0.4 % (0-4); Lymphocytes # 1.8 K/mcL (0.6-4.6); Lymphocytes % 14.9 %; Mean Corpuscular HGB Conc 31.6 g/dL (31.6-35.5); Mean Corpuscular Hemoglobin 35.1 pg (28.0-33.3); Mean Platelet Volume 9.1 fL (9.4-12.4); Monocytes # 0.5 K/mcL (0.0-1.3); Monocytes % 4.2 %; Neutrophils # 9.5 K/mcL (1.6-8.9); Platelet Count 219 K/mcL (140-400); Red Blood Count 2.45 M/mcL (3.82-4.97); Segmented Neutrophils % 80.1 %; White Blood Count 11.8 K/mcL (4.3-11.1)
[2019-05-09 15:11] LABS: Macrocytosis Present (Not Present); Platelet Estimate Normal (Normal)
[2019-05-09 15:28] LABS: Potassium 4.9 mEq/L (3.5-5.1)
[2019-05-09] MEDS: Ondansetron ODT 4 MG TAB.RAPDIS SL SCH ×2 (16:07→20:14)
[2019-05-09] MEDS: 0.9 % Sodium Chloride 1,000 ML IVC SCH (16:08)
[2019-05-09] MEDS ORDERED: SUCROFERRIC OXYHYDROXIDE PO SCH (17:00)
[2019-05-09] MEDS: Insulin LISPRO 300 UNITS/3 ML VIAL SQ SCH ×2 (17:21→20:15)
[2019-05-09] MEDS: *HR* Heparin 5,000 UNIT/ML VIAL SQ SCH (17:38)
--- NOTE | 2019-05-09 19:05 | Nephrology Consult Note ---
Date of Encounter: 05/09/19 Time of Encounter: 12:00 Assessment and Plan (1) ESRD (end stage renal disease) Current Visit: No Status: Chronic PD tonight; orders given to nurse; 2liters, 2.5% dianeal with 4 fills Lytes stable Careful use of IVF advised Renal diet when able to eat (2) Anemia Current Visit: No Status: Chronic Hgb noted at 8.6, pt reports missing EPO last week Resume EPO, Will monitor. Qualifiers: Anemia type: unspecified type Qualified Code(s): D64.9 - Anemia, unspecified (3) Abdominal pain Current Visit: Yes Status: Acute Per primary Qualifiers: Abdominal location: epigastric Qualified Code(s): R10.13 - Epigastric pain (4) Pancreatitis Current Visit: Yes Status: Resolved Per primary Qualifiers: Chronicity: acute Pancreatitis type: unspecified pancreatitis type Acute pancreatitis complication: no infection or necrosis Qualified Code(s): K85.90 - Acute pancreatitis without necrosis or infection, unspecified History of Present Illness - Reason for Consult Consult date: 05/09/19 end stage renal disease Requesting physician: Chico Patton - History of Present Illness 53 y o female with PMH of ESRD on PD, HTN, GRD and high chol admitted as a transfer from [place] where she presented with one day of abdominal pain with nausea and vomiting. CT showed liver cirrhosis and lipase noted at 2000s. Pt seen and examined with some pain but improved. Past Med Surg Social Fam HX - Past Medical History Medical history: GERD, hyperlipidemia, hypertension Additional medical history: QUIT SMOKING 07/2015 Psychiatric history: no psych history - Past Surgical History Surgical History: other Additional surgical history: pd cath placement. 01/26/17 DX HYSTEROSCOPY/D&C @[facility]/DR MAYS - Social History Smoking Status: Former smoker Smokeless Tobacco Status: No Alcohol use: none Drug use: none - Family History Mother Living Status: Age at : 76 Cause of : FELL BROKE BOTH ARMS, MRSA BACTEREMIA Hx Family Cardiac Disorders: Yes Hx Family Genitourinary Disorders: Yes Hx Family Musculoskeletal Disorders: Yes Hx Family Medical Disorders: Yes Medications and Allergies Atorvastatin [Lipitor] 20 mg PO DAILY 11/09/15 [History] Epoetin Elfego [Epogen] 6,000 unit SQ TU 08/04/18 [History] Folic Acid/Vit B Complex and C [Dialyvite Tablet] 1 tab PO DAILY 08/04/18 [History] Carvedilol 12.5 mg PO BID #60 tab 08/06/18 [Rx] Omeprazole [PriLOSEC] 20 mg PO DAILY PRN 02/04/19 [History] Acetaminophen [Tylenol Arthritis] 650 mg PO Q6H PRN 05/09/19 [History] Ondansetron ODT [Zofran ODT] 4 mg SL TID 05/09/19 [History] Oxycodone HCl/Acetaminophen [Percocet 5-325 mg Tablet] 1 tab PO TID PRN 05/09/19 [History] Cholecalciferol (D-3) [Vitamin D] 2,000 unit PO DAILY 05/10/19 [History] Fexofenadine HCl 60 mg PO DAILY 05/10/19 [History] Fluticasone Propionate Nasal [Flonase] 50 mcg NS DAILY 05/10/19 [History] Losartan/Hydrochlorothiazide [Hyzaar 100-25 Tablet] 1 each PO DAILY 05/10/19 [History] Ropinirole HCl [Requip] 1.5 mg PO HS 05/10/19 [History] Sevelamer [Renvela] 2 - 3 tab PO AD 05/10/19 [History] Allergy/AdvReac Type Severity Reaction Status Date / Time celecoxib [From Celebrex] AdvReac Nausea Verified 05/10/19 11:00 Review of Systems All Systems review (narrative): The rest of the systems are negative Constitutional: fatigue (admits), fever(s) (denies) Cardiovascular: chest pain (denies), edema (denies) Respiratory: dyspnea (denies) Gastrointestinal: nausea (admits), vomiting (admits) Exam - Vital Signs Vital signs: Initial Vital Signs Temp Pulse Resp BP Pulse Ox 97.5 F L 53 19 157/63 98 05/09/19 11:03 05/09/19 11:03 05/09/19 11:03 05/09/19 11:03 05/09/19 11:03 Vital Signs - Last 8 Hours Temp Pulse Resp BP Pulse Ox 05/09/19 18:44 97.5 F L 60 17 114/64 99 05/09/19 16:29 97.6 F 55 18 123/58 100 Intake and Output 05/09/19 05/09/19 05/09/19 07:59 15:59 23:59 Intake Total 600 / 600 Output Total 0 / 0 Balance 600 / 600 Intake: Oral 600 / 600 Output: Urine 0 / 0 Other: Meal clears Weight 75.5 kg Blood Glucose* 97 Patient Weight 05/09/19 23:59 Weight 75.5 kg - General Appearance General appearance: well-developed, well-nourished EENT: ATNC, mucous membranes moist Neck: no JVD, supple Cardiology: no edema, normal S1, normal S2 - Dialysis Access Additional Comments: PD catheter with no drainage, NT Gastrointestinal: tenderness (epigastric, mild), no guarding, obese Integumentary: warm and dry Neurologic: no focal deficit Musculoskeletal: no deformities Psychiatric: mood/affect appropriate, cooperative Results - Lab Results 05/10/19 03:54 05/10/19 03:54 Most recent lab results 05/09/19 14:21 Calcium 9.0 Consult Discharge Plan - Plan Referrals: Jomar Santizo DO [Primary Care Provider] -
[2019-05-09] MEDS: rOPINIRole 0.25 MG TABLET PO SCH (20:14)
[2019-05-09] MEDS ORDERED: Perit. Dialysis with Dex 2.5 % 12,000 ML PERITONEAL ONE (20:31)
[2019-05-10 04:57] LABS: Basophils % 0.2 %; Eosinophils # 0.2 K/mcL (0.0-0.6); Eosinophils % 1.5 %; Hematocrit 26.6 % (35.3-44.9); Hemoglobin 8.5 g/dL (11.5-15.4); Immature Granulocytes % 0.6 % (0-4); Lymphocytes # 2.1 K/mcL (0.6-4.6); Lymphocytes % 20.5 %; Mean Corpuscular Hemoglobin 35.3 pg (28.0-33.3); Mean Corpuscular Volume 110.4 fL (83.0-100.0); Monocytes # 0.5 K/mcL (0.0-1.3); Monocytes % 5.1 %; Neutrophils # 7.4 K/mcL (1.6-8.9); Platelet Count 227 K/mcL (140-400); Red Blood Count 2.41 M/mcL (3.82-4.97); Red Cell Distribution Width 14.1 % (11.5-14.5); Segmented Neutrophils % 72.1 %; White Blood Count 10.3 K/mcL (4.3-11.1)
[2019-05-10] MEDS: 0.9 % Sodium Chloride 1,000 ML IVC SCH (04:59)
[2019-05-10] MEDS: *HR* Heparin 5,000 UNIT/ML VIAL SQ SCH ×2 (05:03→14:31)
[2019-05-10 05:12] LABS: Calcium 8.9 mg/dL (8.6-10.3); Potassium 4.8 mEq/L (3.5-5.1)
[2019-05-10 05:14] LABS: Magnesium 2.5 mg/dL (1.6-2.6); Phosphorous 8.7 mg/dL (2.7-4.5)
[2019-05-10 06:13] LABS: Platelet Estimate Normal (Normal)
[2019-05-10] MEDS ORDERED: Acetaminophen 325 MG TABLET PO PRN (07:30)
[2019-05-10] MEDS ORDERED: *HR* OxyCODONE/APAP 5/325 TABLET PO PRN (07:30)
[2019-05-10] MEDS: Insulin LISPRO 300 UNITS/3 ML VIAL SQ SCH ×4 (07:40→21:46)
[2019-05-10] MEDS: Ondansetron ODT 4 MG TAB.RAPDIS SL SCH (08:17)
[2019-05-10] MEDS: Renal Vitamin 1 CAP CAPSULE PO SCH (08:17)
[2019-05-10] MEDS ORDERED: Ondansetron ODT 4 MG TAB.RAPDIS SL PRN (09:03)
--- NOTE | 2019-05-10 11:35 | Internal Med Progress Note ---
Hospitalist Progress Note - Encounter Date of Encounter: 05/10/19 Time of Encounter: 11:34 - Subjective Interval History: I have seen and evaluated the patient at bedside. patient stated her abdominal pain has resolved and she wants to eat more than clear liquids. denies nausea, or vomiting episodes. denies chest pain or shortness of breath. - Exam Vitals: Temp Pulse Resp BP Pulse Ox 97.6 F 54 16 167/85 100 05/10/19 08:05 05/10/19 06:42 05/10/19 08:05 05/10/19 08:05 05/10/19 06:42 Exam: Vitals: Reviewed General: Alert and oriented x4. In no distress Cardiovascular: RRR, normal S1 & S2, no rubs, murmurs or gallops. Lungs: CTA b/l, no wheezes or crackles. Abdomen: Obese, soft, non-tender, no rigidity. hypoactive BS in all 4 quadrant. clean, nontender peritoneal dialysis cath Extremities: No deformity, no edema or tenderness, no joint swelling or club rose mary. Neurological: Normal cognition and motor skills. Rest of the physical exam is non contributory - Assessment and Plan (1) Pancreatitis Current Visit: Yes Status: Resolved Assessment and Plan: patient presented with nausea, vomiting and epigastric pain at an outside hospital. lipase >2000. during my evaluation patient denies abdominal pain Plan will advance diet as tolerated LFTS ordered US of the liver/gallbladder continue PPIs and anti-emetics discontinue IV fluids. (2) Diabetes Current Visit: Yes Status: Chronic Assessment and Plan: blood sugar is controlled. patient on lispro low dose sliding scale ac, will monitor and adjust accordingly. a1c ordered (3) Anemia Current Visit: No Status: Chronic Assessment and Plan: Possible AOD H&H stable. will monitor and transfuse per protocol continue EPOetin (4) Back pain Current Visit: No Status: Chronic Assessment and Plan: patient reported she was told at an outside facility she has some herniated disks. on percocet 5/325mg/PO 1tab PO TID PRN (5) ESRD (end stage renal disease) Current Visit: No Status: Chronic Assessment and Plan: avoid nephrotoxic medications. fluids restriction to 1.5 litters a day. renal replacement therapy per nephrology recommendations (6) HLD (hyperlipidemia) Current Visit: No Status: Chronic Assessment and Plan: On atorvastatin 20 mg by mouth at bedtime. (7) Hypertension Current Visit: No Status: Chronic Assessment and Plan: Blood pressure suboptimally controlled. On losartan 50 mg by mouth daily, and carvedilol 12.5 mg by mouth twice a day. Hydrochlorothiazide 25 mg by mouth daily added. Hydralazine 5 mg IV every 6 hours when necessary for systolic blood pressure more than 190. (8) TRENTON (obstructive sleep apnea) Current Visit: No Status: Chronic Assessment and Plan: Nocturnal BiPAP. (9) UTI (urinary tract infection) Current Visit: Yes Status: Acute Assessment and Plan: we received a call from an outside hospital. reporting a urine culture the patient had recently grew E.coli. patient reported not receiving any antibiotics treatment started on ceftriaxone 1gm/IV daily. patient back and abdominal pain could be related to the UTI DVT Prophylaxis: Patient is on heparin subcutaneous. - Summary of Assessment and Plan Summary of Assessment and Plan: Patient to remain in the hospital due to pancreatitis, diet being advanced. Pot ential discharge tomorrow morning. - Time Spent with Patient Total time spent is greater than 50% in coordination of care (as documented) at patient's floor/unit and/or counseling patient: Greater than 35 minutes (40) Plan of Care Discussed with: patient (and the nurse.) Internal Medicine: Result - Labs CBC & Chem 7: 05/10/19 03:54 05/10/19 03:54 Labs: Short CBC 05/09/19 05/10/19 Range/Units 14:21 03:54 WBC 11.8 H 10.3 (4.3-11.1) K/mcL Hgb 8.6 L 8.5 L (11.5-15.4) g/dL Hct 27.2 L 26.6 L (35.3-44.9) % Plt Count 219 227 (140-400) K/mcL Neutrophils # 9.5 H 7.4 (1.6-8.9) K/mcL BMP 05/09/19 05/10/19 14:21 03:54 Sodium 139 139 Potassium 4.9 4.8 Chloride 99 100 Carbon Dioxide 21 L 22 L BUN 104 H 96 H Creatinine 10.06 H 9.89 H Glucose 94 123 H Calcium 9.0 8.9 Consult Discharge Plan - Plan Referrals: Jomar Santizo DO [Primary Care Provider] - (1) Pancreatitis Qualifiers: Chronicity: acute Pancreatitis type: unspecified pancreatitis type Acute pancreatitis complication: no infection or necrosis Qualified Code(s): K85.90 - Acute pancreatitis without necrosis or infection, unspecified (2) Diabetes Qualifiers: Diabetes mellitus type: type 2 Diabetes mellitus [employer] insulin use: unspecified group home insulin use status Diabetes mellitus complication status: with other specified complication Qualified Code(s): E11.69 - Type 2 diabetes mellitus with other specified complication (3) Anemia Qualifiers: Anemia type: unspecified type Qualified Code(s): D64.9 - Anemia, unspecified (4) Back pain Qualifiers: Back pain location: back pain in other location Chronicity: chronic Qualified Code(s): M54.9 - Dorsalgia, unspecified; G89.29 - Other chronic pain (6) HLD (hyperlipidemia) Qualifiers: Hyperlipidemia type: unspecified Qualified Code(s): E78.5 - Hyperlipidemia, unspecified (7) Hypertension Qualifiers: Hypertension type: essential hypertension Qualified Code(s): I10 - Essential (primary) hypertension (9) UTI (urinary tract infection) Qualifiers: Urinary tract infection type: site unspecified Hematuria presence: without hematuria Qualified Code(s): N39.0 - Urinary tract infection, site not specified
[2019-05-10] MEDS: Gentamicin Oint 15 GM TUBE TP SCH (11:47)
[2019-05-10] MEDS: cefTRIAXone 1,000 MG in Water for inj. (sterile) 10 ML IVP SCH (11:47)
[2019-05-10] MEDS: hydroCHLOROthiazide 25 MG TABLET PO SCH (12:35)
[2019-05-10 13:27] LABS: Albumin 3.4 g/dL (3.5-5.7); Albumin/Globulin Ratio 1.5 (1.1-2.2); Bilirubin,Indirect 0.3 mg/dL (0.0-1.2); Bilirubin,Total 0.3 mg/dL (0.3-1.0); Globulin 2.2 g/dL (2.4-3.5); Total Protein 5.6 g/dL (6.4-8.9)
[2019-05-10 15:01] LABS: Bilirubin,Urine Negative (Negative); Blood,Urine Trace (Negative); Clarity,Urine Clear (Clear); Color,Urine Yellow (Yellow); Glucose,Urine (UA) Normal (Normal); Ketones,Urine Negative (Negative); Leukocyte Esterase,Urine Trace (Negative); Nitrite,Urine Positive (Negative); PH,Urine 7.5 pH Units (5.0-8.0); Protein,Urine 100 mg/dL (Neg-Trace); Specific Gravity,Urine 1.011 (1.010-1.025); Urobilinogen,Urine Normal (Normal)
[2019-05-10 15:02] LABS: Bacteria,Urine None Seen per hpf (None-Few); Hyaline Casts,Urine None Seen per lpf (None-Few); RBC,Urine 0-3 per hpf (0-3); Squamous Epithelial Cell,Urine Many per lpf (None-Few)
--- NOTE | 2019-05-10 18:40 | Nephrology Progress Note ---
Date of Encounter: 05/10/19 Time of Encounter: 12:00 - Assessment and Plan (1) ESRD (end stage renal disease) Current Visit: No Status: Chronic Continue PD nightly: 2liters, 2.5% dianeal with 4 fills Lytes stable Off IVF, fluid restriction advised Renal diet when able to eat (2) Anemia Current Visit: No Status: Chronic Hgb noted at 8.5, pt reports missing EPO last week EPO resumed, Will monitor. Qualifiers: Anemia type: unspecified type Qualified Code(s): D64.9 - Anemia, unspecified (3) Abdominal pain Current Visit: Yes Status: Acute Per primary Qualifiers: Abdominal location: epigastric Qualified Code(s): R10.13 - Epigastric pain (4) Pancreatitis Current Visit: Yes Status: Resolved Per primary Qualifiers: Chronicity: acute Pancreatitis type: unspecified pancreatitis type Acute pancreatitis complication: no infection or necrosis Qualified Code(s): K85.90 - Acute pancreatitis without necrosis or infection, unspecified Subjective Interval history: Pt seen and examined with family at bedside. Pt reports feeling better with no abd pain. Pt wants to have more than clear fluid diet Objective - Vital Signs Vital signs: Vital Signs Temp Pulse Resp BP Pulse Ox 05/10/19 16:05 97.8 F 55 16 180/69 98 05/10/19 11:52 97.9 F 59 16 118/59 100 05/10/19 08:05 97.6 F 16 167/85 05/10/19 06:42 97.6 F 54 18 189/95 100 05/10/19 05:02 97.5 F L 55 19 165/73 100 05/10/19 00:19 97.4 F L 53 19 138/68 100 05/09/19 22:50 97.7 F 16 155/73 05/09/19 18:44 97.5 F L 60 17 114/64 99 Intake and Output 05/10/19 05/10/19 05/10/19 07:59 15:59 23:59 Intake Total 1240 / 1730 0 / 1730 490 / 1730 Output Total 350 / 350 Balance 1240 / 1380 -350 / 1380 490 / 1380 Intake: IV Fluids 1000 / 1010 10 / 1010 0.9 % Sodium Chloride 1,000 ML 1000 / 1000 @ 75 mls/hr IVC .[id number] [facility] Rx #:[id number] Rocephin 1,000 MG In Water for inj. (sterile) 10 ML @ 600 mls/ hr IVP DAILY DEISY Rx#:[id number] Oral 240 / 720 0 / 720 480 / 720 Output: Urine 350 / 350 Other: Meal Breakfast clears Percent of Meal Consumed 0% # Voids 2 Blood Glucose* 105 76 76 - General Appearance General appearance: Present: well-developed, well-nourished EENT: Present: ATNC, mucous membranes moist Neck: Present: no JVD, supple Respiratory: Present: clear Cardiology: Present: no edema, normal S1, normal S2 Additional Comments: PD exit site with no drainage, NT Gastrointestinal: Present: no tenderness, no guarding, obese Integumentary: Present: warm and dry Neurologic: Present: no focal deficit Musculoskeletal: Present: no deformities Psychiatric: Present: mood/affect appropriate, cooperative - Lab 05/10/19 03:54 05/10/19 03:54 Most recent lab results 05/10/19 03:54 Calcium 8.9 Consult Discharge Plan - Plan Referrals: Jomar Santizo DO [Primary Care Provider] -
[2019-05-10] MEDS ORDERED: Perit. Dialysis with Dex 2.5 % 12,000 ML PERITONEAL ONE (19:00)
[2019-05-10] MEDS: rOPINIRole 0.25 MG TABLET PO SCH (22:00)
[2019-05-11 03:19] LABS: Calcium 9.5 mg/dL (8.6-10.3); Magnesium 2.5 mg/dL (1.6-2.6); Phosphorous 8.6 mg/dL (2.7-4.5); Potassium 4.5 mEq/L (3.5-5.1)
[2019-05-11] MEDS: *HR* Heparin 5,000 UNIT/ML VIAL SQ SCH (05:59)
[2019-05-11] MEDS: Perit. Dialysis with Dex 2.5 % 6,000 ML PERITONEAL SCH ×4 (07:38→12:25)
[2019-05-11] MEDS: Insulin LISPRO 300 UNITS/3 ML VIAL SQ SCH ×2 (07:39→11:30)
[2019-05-11] MEDS: hydroCHLOROthiazide 25 MG TABLET PO SCH (09:24)
[2019-05-11] MEDS: Gentamicin Oint 15 GM TUBE TP SCH (09:24)
[2019-05-11] MEDS: cefTRIAXone 1,000 MG in Water for inj. (sterile) 10 ML IVP SCH (09:24)
[2019-05-11] MEDS: Renal Vitamin 1 CAP CAPSULE PO SCH (09:24)
--- NOTE | 2019-05-11 09:27 | Discharge Summary ---
Orders not resulted at time of discharge: Pending orders 05/11/19 02:19 Hgb A1C AM 0400 Date of Encounter: 05/11/19 Time of Encounter: 09:24 - Discharge Diagnosis (1) Pancreatitis Priority: Primary Status: Resolved Qualifiers: Chronicity: acute Pancreatitis type: unspecified pancreatitis type Acute pancreatitis complication: no infection or necrosis Qualified Code(s): K85.90 - Acute pancreatitis without necrosis or infection, unspecified (2) Diabetes Priority: Secondary Status: Chronic Qualifiers: Diabetes mellitus type: type 2 Diabetes mellitus intermodal customer service insulin use: unspecified skilled nursing insulin use status Diabetes mellitus complication status: with other specified complication Qualified Code(s): E11.69 - Type 2 diabetes mellitus with other specified complication (3) Anemia Priority: Secondary Status: Chronic Qualifiers: Anemia type: unspecified type Qualified Code(s): D64.9 - Anemia, unspecified (4) Back pain Priority: Secondary Status: Chronic Qualifiers: Back pain location: back pain in other location Chronicity: chronic Qualified Code(s): M54.9 - Dorsalgia, unspecified; G89.29 - Other chronic pain (5) ESRD (end stage renal disease) Priority: Secondary Status: Chronic (6) HLD (hyperlipidemia) Priority: Secondary Status: Chronic Qualifiers: Hyperlipidemia type: unspecified Qualified Code(s): E78.5 - Hyperlipidemia, unspecified (7) Hypertension Priority: Secondary Status: Chronic Qualifiers: Hypertension type: essential hypertension Qualified Code(s): I10 - Essential (primary) hypertension (8) [place] (obstructive sleep apnea) Priority: Secondary Status: Chronic (9) UTI (urinary tract infection) Priority: Secondary Status: Acute Qualifiers: Urinary tract infection type: site unspecified Hematuria presence: without hematuria Qualified Code(s): N39.0 - Urinary tract infection, site not specified Hospital course: Ms. Constantino is a 53 year old female ESRD on peritoneal dialysis, anemia, HTN, DM. Patient was a direct transfer from another hospital. She went to the hospital with chief complaint of abdominal pain with nausea and vomiting that started one day prior. CT abdomen/donna showing cirrhotic liver with ascites. lipase of 2838 and amylase of 203. Patient admitted to the hospital due to acute pancreatitis. Patient was managed with IV fluids and bowel rest. US/US liver IMPRESSION: 1. Trace ascites. 2. No evidence of gallstones. 3. Atrophic right kidney. LIVER: The liver demonstrates normal echogenicity without evidence of intrahepatic biliary ductal dilatation. documentation were sent from an outside hospital with report for AU results and urine culture result, patient stated on oral antibiotics. Patient acute symptoms resolved and she is hemodynamically stable to be discharged home. - Time Spent with Patient Total time spent providing and/or coordinating discharge services: Time spent: Greater than 30 minutes (35) - Discharge Medications Prescriptions: New Nitrofurantoin (BID) [Macrobid] 100 mg PO BID 5 Days #10 capsule Continued Folic Acid/Vit B Complex and C [Dialyvite Tablet] 1 tab PO DAILY Epoetin Elfego [Epogen] 6,000 unit SQ TU Carvedilol 12.5 mg PO BID #60 tab Omeprazole [PriLOSEC] 20 mg PO DAILY PRN PRN Reason: Heartburn Ondansetron ODT [Zofran ODT] 4 mg SL TID Acetaminophen [Tylenol Arthritis] 650 mg PO Q6H PRN PRN Reason: BACK PAIN Oxycodone HCl/Acetaminophen [Percocet 5-325 mg Tablet] 1 tab PO TID PRN PRN Reason: Pain Losartan/Hydrochlorothiazide [Hyzaar 100-25 Tablet] 1 each PO DAILY Ropinirole HCl [Requip] 1.5 mg PO HS Cholecalciferol (D-3) [Vitamin D] 2,000 unit PO DAILY Fluticasone Propionate Nasal [Flonase] 50 mcg NS DAILY Sevelamer [Renvela] 2 - 3 tab PO AD Fexofenadine HCl 60 mg PO DAILY Atorvastatin [Lipitor] 20 mg PO DAILY Home Medications: Atorvastatin [Lipitor] 20 mg PO DAILY 11/09/15 [History] Epoetin Elfego [Epogen] 6,000 unit SQ TU 08/04/18 [History] Folic Acid/Vit B Complex and C [Dialyvite Tablet] 1 tab PO DAILY 08/04/18 [History] Carvedilol 12.5 mg PO BID #60 tab 08/06/18 [Rx] Omeprazole [PriLOSEC] 20 mg PO DAILY PRN 02/04/19 [History] Acetaminophen [Tylenol Arthritis] 650 mg PO Q6H PRN 05/09/19 [History] Ondansetron ODT [Zofran ODT] 4 mg SL TID 05/09/19 [History] Oxycodone HCl/Acetaminophen [Percocet 5-325 mg Tablet] 1 tab PO TID PRN 05/09/19 [History] Cholecalciferol (D-3) [Vitamin D] 2,000 unit PO DAILY 05/10/19 [History] Fexofenadine HCl 60 mg PO DAILY 05/10/19 [History] Fluticasone Propionate Nasal [Flonase] 50 mcg NS DAILY 05/10/19 [History] Losartan/Hydrochlorothiazide [Hyzaar 100-25 Tablet] 1 each PO DAILY 05/10/19 [History] Ropinirole HCl [Requip] 1.5 mg PO HS 05/10/19 [History] Sevelamer [Renvela] 2 - 3 tab PO AD 05/10/19 [History] Nitrofurantoin (BID) [Macrobid] 100 mg PO BID 5 Days #10 capsule 05/11/19 [Rx] Allergies/Adverse Reactions: Allergy/AdvReac Type Severity Reaction Status Date / Time celecoxib [From Celebrex] AdvReac Nausea Verified 05/10/19 11:00 Date of admission: 05/09/19 10:32 Primary care physician: Jomar Santizo DO Consults: 05/09/19 12:29 Consult to Nephrology [CONS] Routine Consulting Provider: Kidney Margareth/PABLO/DAVIAN/TORO Reason for Consult: ESRD on peritoneal dialysis. needs dialysis orders. Call Completed: Yes 05/09/19 20:30 Consult to Dialysis [CONS] ONCE 05/10/19 09:00 Consult to Nurse Navigator [CONS] Routine Comment: pd 05/10/19 17:00 Consult to Dialysis [CONS] ONCE 05/10/19 20:30 Consult to Dialysis [CONS] ONCE - Constitutional Vitals: Temp Pulse Resp BP Pulse Ox 97.5 F L 59 18 155/70 100 05/11/19 08:00 05/11/19 07:12 05/11/19 08:00 05/11/19 08:00 05/11/19 07:12 General appearance: Present: mild distress, A&O X 3, pleasant, no acute distress, answers questions appropriately Exam: Vitals: Reviewed General: Alert and oriented x4. In no distress Cardiovascular: RRR, normal S1 & S2, no rubs, murmurs or gallops. Lungs: CTA b/l, no wheezes or crackles. Abdomen: Obese, soft, non-tender, no rigidity. hypoactive BS in all 4 quadrant. clean, nontender peritoneal dialysis cath Extremities: No edema Neurological: No focal neurological abnormalities Rest of the physical exam is non contributory - Patient Status Disposition: Home, Self-Care Condition: Good Functional capacity at discharge: independent ambulation Overall status at discharge: patient is back to baseline - Discharge Instructions Follow Up With: Jomar Santizo DO [Primary Care Provider] - - Diet and Activity Activity: resume usual activities as tolerated Diet: diabetic diet, low salt diet
[2019-05-11 11:45] VITALS: BP 153/90
[2019-05-14 08:44] LABS: Estimated Average Glucose 117 mg/dL
== END 2019-05-11 13:24 | disposition home or self-care (01) ==
LOC: 2ANU → SUATTDRO 10:32
PROVIDERS: ADMIT Family Medicine; ATTEND Internal Medicine

== ENCOUNTER 2019-05-17 15:49 | Observation (INO) ==
--- NOTE | 2019-05-17 16:17 | Emergency Department Note ---
Disposition Clinical Impression: Acute electrocardiogram changes Intractable nausea and vomiting Qualifiers: Vomiting type: unspecified Qualified Code(s): R11.2 - Nausea with vomiting, unspecified Disposition: Admitted As Inpatient Condition: Fair Time of Disposition: 18:53 General Adult HPI - General Chief complaint: ED Dizziness Stated complaint: Nausea,Vomiting,Dizziness,Diahrrea Time Seen by Provider: 05/17/19 15:56 Source: patient Limitations: no limitations Nursing Notes Reviewed: Yes Vital Signs Reviewed: Yes - History of Present Illness HPI Narrative: 53-year-old female presents emergency department with concern for nausea, vomiting or last few days. Patient states she was seen in the emergency department yesterday, discharged home, but has not been able to get her medications that were prescribed to her because are not available at the pharmacy. Patient has any fevers, chest pain, denies abdominal pain, but does endorse diarrhea. Patient denies any dysuria, urinary for dysuria, urgency. Pain Scale: 0 - Related Data Home Medications Medication Instructions Recorded Confirmed Atorvastatin [Lipitor] 20 mg PO DAILY 11/09/15 05/17/19 Epoetin Elfego [Epogen] 6,000 unit SQ TU 08/04/18 05/17/19 Folic Acid/Vit B Complex and C 1 tab PO DAILY 08/04/18 05/10/19 [Dialyvite Tablet] Omeprazole [PriLOSEC] 20 mg PO PRN PRN 02/04/19 05/17/19 Acetaminophen [Tylenol Arthritis] 650 mg PO Q6H PRN 05/09/19 05/17/19 Ondansetron ODT [Zofran ODT] 4 mg SL TID 05/09/19 05/10/19 Oxycodone HCl/Acetaminophen 1 tab PO TID PRN 05/09/19 05/17/19 [Percocet 5-325 mg Tablet] Cholecalciferol (D-3) [Vitamin D] 2,000 unit PO DAILY 05/10/19 05/17/19 Fexofenadine HCl 60 mg PO DAILY 05/10/19 05/10/19 Fluticasone Propionate Nasal 50 mcg NS DAILY 05/10/19 05/17/19 [Flonase] Losartan/Hydrochlorothiazide 1 each PO DAILY 05/10/19 05/10/19 [Hyzaar 100-25 Tablet] Ropinirole HCl [Requip] 1.5 mg PO HS 05/10/19 05/17/19 Sevelamer [Renvela] 2 - 3 tab PO AD 05/10/19 05/17/19 HydrALAZINE 25 mg PO TID 05/17/19 05/17/19 Previous Rx's Medication Instructions Recorded Carvedilol 12.5 mg PO BID #60 tab 08/06/18 Metoclopramide [Reglan] 5 mg GTUBE Q8HR 5 Days #15 mls 05/16/19 Ondansetron [Zofran ODT] 8 mg SL Q6HR 6 Days #16 tab.rapdis 05/16/19 Allergies Allergy/AdvReac Type Severity Reaction Status Date / Time celecoxib [From Celebrex] AdvReac Nausea Verified 05/16/19 15:29 All systems ED: reviewed and negative except as stated. Review of Systems: As Per HPI Constitutional: Denies: fever Cardiovascular: Denies: chest pain Respiratory: Denies: dyspnea Gastrointestinal: Reports: nausea, vomiting, diarrhea. Denies: abdominal pain Genitourinary: Denies: urgency, dysuria, frequency Musculoskeletal: Denies: back pain Past Medical History - Past Medical History Attestation: Yes The following information was validated with the patient. 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 Absent: respiratory distress, accessory muscle use - Cardiovascular Cardiovascular exam: Present: regular rate, normal rhythm, normal heart sounds - Abdominal Exam Abdominal exam: Present: soft, Non-Tender. Absent: distention, guarding, rebound, rigidity - Extremities Exam Extremities exam: Present: normal capillary refill - Back Exam Back exam: Present: full ROM - Neurological Exam Neurological exam: Present: alert, oriented X3 - Psychiatric Psychiatric exam: Present: normal affect, normal mood - Skin Skin exam: Present: warm, dry, intact, normal color. Absent: rash Course Vital Signs Temperature 97.9 F 05/17/19 15:51 Pulse Rate 68 05/17/19 15:51 Respiratory Rate 18 05/17/19 15:51 Blood Pressure 103/68 05/17/19 15:51 O2 Sat by Pulse Oximetry 100 05/17/19 15:51 Temperature 97.9 F 05/18/19 07:15 Pulse Rate 64 05/18/19 07:15 Respiratory Rate 16 05/18/19 07:15 Blood Pressure 122/73 05/18/19 07:15 O2 Sat by Pulse Oximetry 95 05/18/19 07:15 Oxygen Delivery Oxygen Delivery Room Air Medical Decision Making - MDM Narrative Medical decision making narrative: 53-year-old female presents emergency Department concern for nausea, vomiting, diarrhea. Patient hemodynamically stable not in acute distress. We did obtain EKG which revealed some ST changes that were nonspecific in nature. CT scan of abdomen and pelvis reveal any acute surgical intra-abdominal abnormality. Labs were within normal limits, with known end-stage renal disease and elevated creatinine as patient is on peritoneal dialysis. Patient was given Reglan here in the emergency department. She did not vomit while here, however, patient is high risk for acute coronary syndrome with her end-stage renal disease and multiple risk factors. Admission for intractable nausea vomiting as well as ECG changes. She agrees with plan. Chest X-Ray 05/17/19 16:12 IMPRESSION: No acute cardiopulmonary disease. D/ / 05/17/2019 17:05:14 Juan Goodrich MD / stan Interpreting Provider: Juan Goodrich MD Abdomen/Pelvis CT 05/17/19 16:30 IMPRESSION: No acute abnormalities identified. Small amount of free intraperitoneal fluid, which presumably is reflective of dialysate. Moderate stool burden. Correlate with any clinical evidence of constipation. Mild diverticulosis, but without CT evidence of diverticulitis. Status post left nephrectomy with unchanged scarring in the left nephrectomy bed. D/ / Oracio Bueno MD / Oracio Bueno MD Interpreting Provider: Oracio Bueno MD - Lab Data Result diagrams: 05/17/19 16:33 05/17/19 16:33 Lab Results 05/17/19 05/17/19 Range/Units 16:33 16:33 WBC 12.5 H (4.3-11.1) K/mcL RBC 2.60 L (3.82-4.97) M/mcL Hgb 9.2 L (11.5-15.4) g/dL Hct 28.0 L (35.3-44.9) % MCV 107.7 H (83.0-100.0) fL MCH 35.4 H (28.0-33.3) pg MCHC 32.9 (31.6-35.5) g/dL RDW 13.7 (11.5-14.5) % Plt Count 170 (140-400) K/mcL MPV 9.6 (9.4-12.4) fL Immature Gran % 0.6 (0-4) % Seg Neutrophils % 86.7 % Lymphocytes % 7.0 % Monocytes % 3.7 % Eosinophils % 1.9 % Basophils % 0.1 % Neutrophils # 10.9 H (1.6-8.9) K/mcL Lymphocytes # 0.9 (0.6-4.6) K/mcL Monocytes # 0.5 (0.0-1.3) K/mcL Eosinophils # 0.2 (0.0-0.6) K/mcL Basophils # 0.0 (0.0-0.2) K/mcL Sodium 136 (136-145) mEq/L Potassium 4.4 (3.5-5.1) mEq/L Chloride 101 (98-107) mEq/L Carbon Dioxide 19 L (23-29) mEq/L BUN 61 H (6-20) mg/dL Creatinine 9.90 H (0.60-1.20) mg/dL Est GFR ( Amer) 5 L (> 60) Est GFR (Non-Af Amer) 4 L (> 60) BUN/Creatinine Ratio 6 (6-26) Glucose 107 H (70-105) mg/dL Calculated Osmolality 300 (280-300) Calcium 8.9 (8.6-10.3) mg/dL Magnesium 2.4 (1.6-2.6) mg/dL Total Bilirubin 0.3 (0.3-1.0) mg/dL Direct Bilirubin 0.1 (0.0-0.2) mg/dL Indirect Bilirubin 0.2 (0.0-1.2) mg/dL AST 12 L (13-39) Units/L ALT 14 (7-52) Units/L Alkaline Phosphatase 59 (34-104) Units/L Troponin I < 0.03 (< 0.04) ng/mL Serum Total Protein 5.8 L (6.4-8.9) g/dL Albumin 3.6 (3.5-5.7) g/dL Globulin 2.2 L (2.4-3.5) g/dL Albumin/Globulin Ratio 1.6 (1.1-2.2) Lipase 26 (11-82) Units/L - EKG Data EKG #1 EKG attestation: Yes I reviewed and interpreted this EKG. EKG results narrative: 16:05 Heart rate 66 bpm, MA interval is 170 ms, QRS duration 96 months and, QT 396 ms, left axis deviation. ST depressions noted in the lateral leads as well as inferior leads. AVL is inverted. New from ECG obtained in April. Attestation Statement - Attestation Attestation: I have seen this patient with the resident physician, I have personally evaluated this patient. I had reviewed the chart and document dictation by the resident physician and aM in agreement with the information documented by the resident physician. Please see documentation by the resident physician for complete chart including past medical history, family medical history, review of systems, current history and physical and laboratory and imaging studies. I was present for all procedures, provided direct supervision for all procedures, was present for the entirety of all procedures and provided direct guidance during the procedures. Please see documentation by the resident physician for any procedures performed. I have reviewed all interpretations of EKGs, and reviewed all EKGs performed on patient's as well. I have also reviewed reports of imaging as provided by radiology.
[2019-05-17] MEDS ORDERED: 0.9 % Sodium Chloride 1,000 ML IVC ONE (16:19)
[2019-05-17] MEDS ORDERED: Metoclopramide 10 MG/2 ML VIAL IVP ONE (16:19)
[2019-05-17 16:45] LABS: Basophils % 0.1 %; Eosinophils # 0.2 K/mcL (0.0-0.6); Eosinophils % 1.9 %; Hemoglobin 9.2 g/dL (11.5-15.4); Immature Granulocytes % 0.6 % (0-4); Lymphocytes # 0.9 K/mcL (0.6-4.6); Mean Corpuscular HGB Conc 32.9 g/dL (31.6-35.5); Mean Corpuscular Hemoglobin 35.4 pg (28.0-33.3); Mean Corpuscular Volume 107.7 fL (83.0-100.0); Mean Platelet Volume 9.6 fL (9.4-12.4); Monocytes # 0.5 K/mcL (0.0-1.3); Monocytes % 3.7 %; Neutrophils # 10.9 K/mcL (1.6-8.9); Platelet Count 170 K/mcL (140-400); Red Cell Distribution Width 13.7 % (11.5-14.5); Segmented Neutrophils % 86.7 %; White Blood Count 12.5 K/mcL (4.3-11.1)
[2019-05-17 17:09] LABS: Blood Urea Nitrogen 61 mg/dL (6-20); Carbon Dioxide 19 mEq/L (23-29); Chloride 101 mEq/L (98-107); Potassium 4.4 mEq/L (3.5-5.1); Sodium 136 mEq/L (136-145)
[2019-05-17 17:10] LABS: Alanine Aminotransferase 14 Units/L (7-52); Albumin 3.6 g/dL (3.5-5.7); Albumin/Globulin Ratio 1.6 (1.1-2.2); Alkaline Phosphatase 59 Units/L (34-104); Aspartate Amino Transferase 12 Units/L (13-39); BUN/Creatinine Ratio 6 (6-26); Bilirubin,Direct 0.1 mg/dL (0.0-0.2); Bilirubin,Indirect 0.2 mg/dL (0.0-1.2); Bilirubin,Total 0.3 mg/dL (0.3-1.0); Calcium 8.9 mg/dL (8.6-10.3); Globulin 2.2 g/dL (2.4-3.5); Glucose 107 mg/dL (70-105); Lipase 26 Units/L (11-82); Magnesium 2.4 mg/dL (1.6-2.6); Osmolality,Calculated 300 (280-300); Total Protein 5.8 g/dL (6.4-8.9); Troponin I < 0.03 ng/mL (< 0.04); eGFR For African Americans 5 (> 60); eGFR For Non-African Americans 4 (> 60)
--- NOTE | 2019-05-17 17:43 | Emergency Department Note ---
Disposition Clinical Impression: Intractable nausea and vomiting, Acute electrocardiogram changes Disposition: Still a Patient Condition: Fair Referrals: Jomar Santizo DO [Primary Care Provider] - Forms: ED Satisfaction Letter Time of Disposition: 17:49 General Adult HPI - General Chief complaint: ED Dizziness Stated complaint: Nausea,Vomiting,Dizziness,Diahrrea Time Seen by Provider: 05/17/19 15:56 Source: patient Limitations: no limitations Nursing Notes Reviewed: Yes Vital Signs Reviewed: Yes - History of Present Illness Pain Scale: 0 - Related Data Home Medications Medication Instructions Recorded Confirmed Atorvastatin [Lipitor] 20 mg PO DAILY 11/09/15 05/10/19 Epoetin Elfego [Epogen] 6,000 unit SQ TU 08/04/18 05/10/19 Folic Acid/Vit B Complex and C 1 tab PO DAILY 08/04/18 05/10/19 [Dialyvite Tablet] Omeprazole [PriLOSEC] 20 mg PO DAILY PRN 02/04/19 05/10/19 Acetaminophen [Tylenol Arthritis] 650 mg PO Q6H PRN 05/09/19 05/10/19 Ondansetron ODT [Zofran ODT] 4 mg SL TID 05/09/19 05/10/19 Oxycodone HCl/Acetaminophen 1 tab PO TID PRN 05/09/19 05/10/19 [Percocet 5-325 mg Tablet] Cholecalciferol (D-3) [Vitamin D] 2,000 unit PO DAILY 05/10/19 05/10/19 Fexofenadine HCl 60 mg PO DAILY 05/10/19 05/10/19 Fluticasone Propionate Nasal 50 mcg NS DAILY 05/10/19 05/10/19 [Flonase] Losartan/Hydrochlorothiazide 1 each PO DAILY 05/10/19 05/10/19 [Hyzaar 100-25 Tablet] Ropinirole HCl [Requip] 1.5 mg PO HS 05/10/19 05/10/19 Sevelamer [Renvela] 2 - 3 tab PO AD 05/10/19 05/10/19 Previous Rx's Medication Instructions Recorded Carvedilol 12.5 mg PO BID #60 tab 08/06/18 Metoclopramide [Reglan] 5 mg GTUBE Q8HR 5 Days #15 mls 05/16/19 Ondansetron [Zofran ODT] 8 mg SL Q6HR 6 Days #16 tab.rapdis 05/16/19 Allergies Allergy/AdvReac Type Severity Reaction Status Date / Time celecoxib [From Celebrex] AdvReac Nausea Verified 05/16/19 15:29 Past Medical History - Past Medical History Medical history: Reports: GERD, hyperlipidemia, hypertension Surgical history: Reports: other Psychiatric history: Reports: no psych history 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 history - Social History Smoking Status: Former smoker Smokeless Tobacco Status: No Alcohol use: Reports: none Drug use: Reports: none Physical Exam - General Limitations: no limitations General appearance: alert, in no apparent distress Course Vital Signs Temperature 97.9 F 05/17/19 15:51 Pulse Rate 68 05/17/19 15:51 Respiratory Rate 18 05/17/19 15:51 Blood Pressure 103/68 05/17/19 15:51 O2 Sat by Pulse Oximetry 100 05/17/19 15:51 Temperature 97.9 F 05/17/19 15:51 Pulse Rate 64 05/17/19 17:06 Respiratory Rate 16 05/17/19 17:06 Blood Pressure 125/64 05/17/19 17:23 O2 Sat by Pulse Oximetry 100 05/17/19 17:06 Oxygen Delivery Oxygen Delivery Room Air Medical Decision Making - Lab Data Result diagrams: 05/17/19 16:33 05/17/19 16:33 Lab Results 05/17/19 05/17/19 Range/Units 16:33 16:33 WBC 12.5 H (4.3-11.1) K/mcL RBC 2.60 L (3.82-4.97) M/mcL Hgb 9.2 L (11.5-15.4) g/dL Hct 28.0 L (35.3-44.9) % MCV 107.7 H (83.0-100.0) fL MCH 35.4 H (28.0-33.3) pg MCHC 32.9 (31.6-35.5) g/dL RDW 13.7 (11.5-14.5) % Plt Count 170 (140-400) K/mcL MPV 9.6 (9.4-12.4) fL Immature Gran % 0.6 (0-4) % Seg Neutrophils % 86.7 % Lymphocytes % 7.0 % Monocytes % 3.7 % Eosinophils % 1.9 % Basophils % 0.1 % Neutrophils # 10.9 H (1.6-8.9) K/mcL Lymphocytes # 0.9 (0.6-4.6) K/mcL Monocytes # 0.5 (0.0-1.3) K/mcL Eosinophils # 0.2 (0.0-0.6) K/mcL Basophils # 0.0 (0.0-0.2) K/mcL Sodium 136 (136-145) mEq/L Potassium 4.4 (3.5-5.1) mEq/L Chloride 101 (98-107) mEq/L Carbon Dioxide 19 L (23-29) mEq/L BUN 61 H (6-20) mg/dL Creatinine 9.90 H (0.60-1.20) mg/dL Est GFR ( Amer) 5 L (> 60) Est GFR (Non-Af Amer) 4 L (> 60) BUN/Creatinine Ratio 6 (6-26) Glucose 107 H (70-105) mg/dL Calculated Osmolality 300 (280-300) Calcium 8.9 (8.6-10.3) mg/dL Magnesium 2.4 (1.6-2.6) mg/dL Total Bilirubin 0.3 (0.3-1.0) mg/dL Direct Bilirubin 0.1 (0.0-0.2) mg/dL Indirect Bilirubin 0.2 (0.0-1.2) mg/dL AST 12 L (13-39) Units/L ALT 14 (7-52) Units/L Alkaline Phosphatase 59 (34-104) Units/L Troponin I < 0.03 (< 0.04) ng/mL Serum Total Protein 5.8 L (6.4-8.9) g/dL Albumin 3.6 (3.5-5.7) g/dL Globulin 2.2 L (2.4-3.5) g/dL Albumin/Globulin Ratio 1.6 (1.1-2.2) Lipase 26 (11-82) Units/L Attestation Statement - Attestation Attestation: I have seen this patient with the resident physician, I have personally evaluated this patient. I had reviewed the chart and document dictation by the resident physician and aM in agreement with the information documented by the re sident physician. Please see documentation by the resident physician for complete chart including past medical history, family medical history, review of systems, current history and physical and laboratory and imaging studies. I was present for all procedures, provided direct supervision for all procedures, was present for the entirety of all procedures and provided direct guidance during the procedures. Please see documentation by the resident physician for any procedures performed. I have reviewed all interpretations of EKGs, and reviewed all EKGs performed on patient's as well. I have also reviewed reports of imaging as provided by radiology. Patient returns the emergency room today with persistent nausea and vomiting, I saw this patient yesterday in the emergency department for intractable nausea and vomiting for the last several days, she had been given 1 dose of IV nausea medication in the emergency department tolerated by mouth food and fluids without difficulty and I added Reglan to her medications, she was however unable to get this filled because the pharmacy did not have it. The patient states that she will did keep things down all over the night last night when she awoke up this morning she took a double dose of Zofran that we had talked about, and was originally able to keep some stuff down, she then went to work and started throwing up and then started having diarrhea which was new she had not been having diarrhea before. She states that she also got dizzy, something that she had not had with her other previous episodes she had no chest pain no shortness of breath, she states she got a little bit sweaty but thought that was probably from throwing up. She denies black or bloody stool. She denies palpitations. She denies headache neck pain. She denies focal numbness or weakness. She has absolutely no abdominal pain. She has not had any abdominal pain. She completed a full run of peritoneal dialysis this morning without difficulty. Secondary to her dizziness today, EKG was performed, does demonstrate some inferior and lateral changes from her most recent EKG from a week and a half ago, with some downsloping ST segment and biphasic appearance to the T waves which is new in all 6 of these leads, there is however no ST elevation or true ST depression. She has again no chest pain no shortness of breath no palpitations, no back pain no abdominal pain. She currently does not have any significant symptoms apart from feeling still nauseated. She states that she dry heaved and did not really vomit anything up today. Basic laboratory studies were all within acceptable limits including CBC basic metabolic profile cardiac enzymes LFTs lipase magnesium. Chest x-ray showed no acute findings. CT scan of the abdomen and pelvis was ordered secondary to persistent symptoms of nausea vomiting although again she has no pain no fevers no chills no black or bloody stool, nothing to suggest SBP, but now has some new loose stools, we will evaluate for any evidence of diverticulitis colitis or acute intra- abdominal process. Patient will be admitted to the hospital for further evaluation and management of intractable nausea and vomiting, and a peritoneal dialysis patient. She was given Reglan and fluids here.
--- NOTE | 2019-05-17 19:58 | Internal Med History&Physical ---
<Juan Fonseca - Last Filed: 05/18/19 00:04> Date of Encounter: 05/18/19 Time of Encounter: 07:22 Internal Medicine - H&P: HPI Chief complaint: Nausea, vomiting Admitted From: Emergency Dept Plans for Post Hospital Care: Home History of present illness: Ms. Constantino is a 53 year old female with past medical history of GERD, hypertension, hyperlipidemia, anemia, ESRD on daily peritoneal dialysis. She presents to the emergency department with a complaint of nausea and vomiting 1 week. She states that she experiences intermittent vomiting approximately 2 hours after each meal. She has been able to keep down a ships however has been vomiting all other food substances. She does have a chronic history of nausea and does take Zofran at home. She denies any associated symptoms including fevers, chills, chest pain, difficulty breathing, rashes, numbness, tingling, joint pain. She did have one episode of loose stools this morning but otherwise bowel movements are unchanged. She still does make urine and states that she has not noticed any changes in color, smell, frequency, urgency. Of note, patient was seen in the emergency department on 05/16/19 with the same complaints. She was discharged with a prescription of increased Zofran to 8 mg sublingually as well as Reglan. Patient states that she was unable to fill this prescription. She was also admitted to this facility and discharged on 05/11/19 with a diagnosis of pancreatitis as well as urinary tract infection. She was treated supportively and given a prescription for Macrobid for her urinary tract infection. Patient states that she has been compliant with antibiotic and has 3 doses left. In the emergency department, vital signs were unremarkable. Laboratory results show a mild leukocytosis at 12.5, hemoglobin of 9.2 which is stable at baseline. Kidney function is consistent with end-stage renal disease, bicarbonate 19, potassium 4.5. Chest x-ray was obtained in was unremarkable. EKG showed an nonspecific ST changes in I, II. Upon my evaluation, patient is currently asymptomatic. She is pleasant and requesting crackers and ice chips. She does have an appetite and is denying any abdominal pain or nausea at this time. Past medical history: As above Past surgical history: PD catheter, left nephrectomy secondary to recurrent infections/nephrolithiasis, previous nephrostomy tube Social history: Very remote history of tobacco use quitting approximately 16 years ago, rare alcohol use, remote history of marijuana use. Family history: Brother and sister with alcohol abuse, father with cardiac disease. Past Med Surg Social Fam HX - Past Medical History Medical history: GERD, hyperlipidemia, hypertension Additional medical history: QUIT SMOKING 07/2015 Psychiatric history: no psych history - Past Surgical History Surgical History: other Additional surgical history: pd cath placement. 01/26/17 DX HYSTEROSCOPY/D&C @[facility] - Social History Smoking Status: Former smoker Smokeless Tobacco Status: No Alcohol use: none Drug use: none - Family History Mother Living Status: Hx Family Cardiac Disorders: Yes Internal Medicine - H&P: Meds Atorvastatin [Lipitor] 20 mg PO DAILY 11/09/15 [History] Epoetin Elfego [Epogen] 6,000 unit SQ TU 08/04/18 [History] Folic Acid/Vit B Complex and C [Dialyvite Tablet] 1 tab PO DAILY 08/04/18 [History] Carvedilol 12.5 mg PO BID #60 tab 08/06/18 [Rx] Omeprazole [PriLOSEC] 20 mg PO PRN PRN 02/04/19 [History] Acetaminophen [Tylenol Arthritis] 650 mg PO Q6H PRN 05/09/19 [History] Ondansetron ODT [Zofran ODT] 4 mg SL TID 05/09/19 [History] Oxycodone HCl/Acetaminophen [Percocet 5-325 mg Tablet] 1 tab PO TID PRN 05/09/19 [History] Cholecalciferol (D-3) [Vitamin D] 2,000 unit PO DAILY 05/10/19 [History] Fexofenadine HCl 60 mg PO DAILY 05/10/19 [History] Fluticasone Propionate Nasal [Flonase] 50 mcg NS DAILY 05/10/19 [History] Losartan/Hydrochlorothiazide [Hyzaar 100-25 Tablet] 1 each PO DAILY 05/10/19 [History] Ropinirole HCl [Requip] 1.5 mg PO HS 05/10/19 [History] Sevelamer [Renvela] 2 - 3 tab PO AD 05/10/19 [History] Metoclopramide [Reglan] 5 mg GTUBE Q8HR 5 Days #15 mls 05/16/19 [Rx] Ondansetron [Zofran ODT] 8 mg SL Q6HR 6 Days #16 tab.rapdis 05/16/19 [Rx] HydrALAZINE 25 mg PO TID 05/17/19 [History] Allergy/AdvReac Type Severity Reaction Status Date / Time celecoxib [From Celebrex] AdvReac Nausea Verified 05/16/19 15:29 All Systems PM: A 10-system review of systems was performed and is negative for pertinent findings except as documented above in the HPI. Review of systems: - Constitutional: Denies fevers, chills, weight loss, generalized fatigue - Head/Neck: Denies BOSTON, neck stiffness - CVS: Denies chest pain, palpitations, VALENTIN, orthopnea, edema, - Pulm: Denies SOB, cough, sputum , wheezing - GI: Admits to nausea and vomiting. Denies abdominal pain, anorexia, diarrhea, constipation, melena - : Denies dysuria, increased frequency, urgency, hematuria, strong odor - Skin: Denies rashes, ulcers, color changes, - Neuro: Denies BOSTON, paresthesias, focal deficits, ataxia, - Constitutional Vitals: Temp Pulse Resp BP Pulse Ox 97.9 F 64 16 125/64 100 05/17/19 15:51 05/17/19 17:06 05/17/19 17:06 05/17/19 17:23 05/17/19 17:06 Exam: Gen.: Vitals noted. No acute distress. AAOx3, resting comfortably in bed. Very pleasant, well developed and well-nourished HEENT: PERRL/EOMI, oropharynx clear, Normocephalic, atraumatic, MMM Cardiac: RRR, no murmur, +S1/S2, No BLE edema Pulmonary: CTA bilaterally, no wheezes, rales or rhonchi, equal chest expansion, unlabored breathing Abdomen: soft, nontender, BS noted, no guarding, no palpable HSM, minimally distended, PD catheter in place with no surrounding signs of infection Back: Nontender throughout. Skin: warm and dry, no visible lesions. MSK: ROM intact, no joint swelling noted, gait no assessed while in bed. Non tender calf or clubbing Neuro: A&Ox3, moves all extremities, no focal deficits, sensation intact, Psych: Appropriate mood behavior, AOx3 Internal Med - H&P Results - Labs CBC & Chem 7: 05/17/19 16:33 05/17/19 16:33 Labs: Short CBC 05/17/19 Range/Units 16:33 WBC 12.5 H (4.3-11.1) K/mcL Hgb 9.2 L (11.5-15.4) g/dL Hct 28.0 L (35.3-44.9) % Plt Count 170 (140-400) K/mcL Neutrophils # 10.9 H (1.6-8.9) K/mcL BMP 05/17/19 16:33 Sodium 136 Potassium 4.4 Chloride 101 Carbon Dioxide 19 L BUN 61 H Creatinine 9.90 H Glucose 107 H Calcium 8.9 Cardiac Enzymes 05/17/19 Range/Units 16:33 Troponin I < 0.03 (< 0.04) ng/mL Liver Function 05/17/19 Range/Units 16:33 Total Bilirubin 0.3 (0.3-1.0) mg/dL Direct Bilirubin 0.1 (0.0-0.2) mg/dL AST 12 L (13-39) Units/L ALT 14 (7-52) Units/L Alkaline Phosphatase 59 (34-104) Units/L Albumin 3.6 (3.5-5.7) g/dL - Impressions ITS Impressions Chest X-Ray 05/17/19 16:12 IMPRESSION: No acute cardiopulmonary disease. D/ / 05/17/2019 17:05:14 Juan Goodrich MD / [facility] Interpreting Provider: Juan Goodrich MD Abdomen/Pelvis CT 05/17/19 16:30 IMPRESSION: No acute abnormalities identified. Small amount of free intraperitoneal fluid, which presumably is reflective of dialysate. Moderate stool burden. Correlate with any clinical evidence of constipation. Mild diverticulosis, but without CT evidence of diverticulitis. Status post left nephrectomy with unchanged scarring in the left nephrectomy bed. D/ / Oracio Bueno MD / Oracio Bueno MD Interpreting Provider: Oracio Bueno MD - Assessment and Plan (1) Intractable nausea and vomiting Current Visit: Yes Status: Acute Assessment and plan: - Patient reports a one-week history of intractable nausea and vomiting following meals - Etiology I suspect is gastroparesis - There is no systemic signs of infection. Review of systems unremarkable - Benign physical exam does not suggest peritonitis, pyelonephritis, UTI - Does have a mild leukocytosis at 12.5 however suspect this is reactive secondary to vomiting - Patient recently treated for urinary tract infection with Macrobid. She reports no urinary symptoms at this visit - Patient received reglan in the ED with improvement of symptoms Plan - Continue Zofran and home dose as well as reglan PRN - CLD, renal adjustments - Supportive care. - Will not give fluids in the setting of ESRD and she is not severely hypovolemic. Qualifiers: Vomiting type: unspecified Qualified Code(s): R11.2 - Nausea with vomiting, unspecified (2) ESRD (end stage renal disease) Current Visit: Yes Status: Chronic Assessment and plan: - Daily PD, follows with Dr. Veliz as outpatient - Discussed case with Dr. Veliz who recommends holding off PD tonight unless otherwise acute need - Patient does not appear volume overloaded, K of 4.5, bicarb 19. - Will consult nephro, continue to monitor (3) Hypertension Current Visit: Yes Status: Chronic Assessment and plan: - Well controlled - Will continue home meds Qualifiers: Hypertension type: essential hypertension Qualified Code(s): I10 - Essential (primary) hypertension (4) Anemia Current Visit: Yes Status: Chronic Assessment and plan: - Chronic anemia secondary to ESRD - Hgb of 9.2 which is consistent with baseline - On EPO at home - Will continue to monitor and resume per nephro recommendations Qualifiers: Anemia type: unspecified type Qualified Code(s): D64.9 - Anemia, unspecified (5) Leukocytosis Current Visit: Yes Status: Chronic Assessment and plan: - Neutrophil predominent without bandemia. - Elevated at 12.5 - appears to be chronically mildly elevated from 12-15 at previous visits - Low suspicion for infection at this time - Recently admitted for UTI/pancreatitis and has been vomiting which may explain - Will continue to monitor. Will not start abx. - Non meeting sepsis criteria Qualifiers: Leukocytosis type: unspecified Qualified Code(s): D72.829 - Elevated white blood cell count, unspecified (6) Acute electrocardiogram changes Current Visit: Yes Status: Suspected Assessment and plan: - Non specific ST changes noted in ED in I, II, AVF. - These appear unchanged from 05/03/19 - Troponin wnl - No complaint of chest pain - Will continue to monitor (7) DVT prophylaxis Current Visit: Yes Status: Acute Assessment and plan: Subcutaneous heparin - Time Spent With Patient Total time spent is greater than 50% in coordination of care (as documented) at patient's floor/unit and/or counseling patient: <Meche Hollis - Last Filed: 05/18/19 05:29> Date of Encounter: 05/17/19 Internal Medicine - H&P: HPI History of present illness: Ms. Constantino is a 53 year old female All Systems PM: A 10-system review of systems was performed and is negative for pertinent findings except as documented above in the HPI. - Constitutional Vitals: Temp Pulse Resp BP Pulse Ox 98.1 F 59 17 111/69 99 05/18/19 03:41 05/18/19 03:41 05/18/19 03:41 05/18/19 03:41 05/18/19 03:41 Internal Med - H&P Results - Labs CBC & Chem 7: 05/17/19 16:33 05/17/19 16:33 Labs: Short CBC 05/17/19 Range/Units 16:33 WBC 12.5 H (4.3-11.1) K/mcL Hgb 9.2 L (11.5-15.4) g/dL Hct 28.0 L (35.3-44.9) % Plt Count 170 (140-400) K/mcL Neutrophils # 10.9 H (1.6-8.9) K/mcL BMP 05/17/19 16:33 Sodium 136 Potassium 4.4 Chloride 101 Carbon Dioxide 19 L BUN 61 H Creatinine 9.90 H Glucose 107 H Calcium 8.9 Cardiac Enzymes 05/17/19 Range/Units 16:33 Troponin I < 0.03 (< 0.04) ng/mL Liver Function 05/17/19 Range/Units 16:33 Total Bilirubin 0.3 (0.3-1.0) mg/dL Direct Bilirubin 0.1 (0.0-0.2) mg/dL AST 12 L (13-39) Units/L ALT 14 (7-52) Units/L Alkaline Phosphatase 59 (34-104) Units/L Albumin 3.6 (3.5-5.7) g/dL - Impressions ITS Impressions Chest X-Ray 05/17/19 16:12 IMPRESSION: No acute cardiopulmonary disease. D/ / 05/17/2019 17:05:14 Juan Goodrich MD / [facility] Interpreting Provider: Juan Goodrich MD Abdomen/Pelvis CT 05/17/19 16:30 IMPRESSION: No acute abnormalities identified. Small amount of free intraperitoneal fluid, which presumably is reflective of dialysate. Moderate stool burden. Correlate with any clinical evidence of constipation. Mild diverticulosis, but without CT evidence of diverticulitis. Status post left nephrectomy with unchanged scarring in the left nephrectomy bed. D/ / Oracio Bueno MD / Oracio Bueno MD Interpreting Provider: Oracio Bueno MD - Time Spent With Patient Total time spent is greater than 50% in coordination of care (as documented) at patient's floor/unit and/or counseling patient: - Attending Attestation I performed a history and physical examination of the patient and discussed his management with the resident. I reviewed the residents note and agree with the documented findings and plan of care.
[2019-05-17] MEDS ORDERED: Naloxone 0.4 MG/ML INJ IVP PRN (20:14)
[2019-05-17] MEDS ORDERED: Metoclopramide 10 MG/2 ML VIAL IVP PRN (20:15)
[2019-05-17] MEDS ORDERED: Acetaminophen 325 MG TABLET PO PRN (20:16)
[2019-05-17] MEDS: hydrALAZINE 25 MG TABLET PO SCH (21:36)
[2019-05-17] MEDS: Ondansetron ODT 4 MG TAB.RAPDIS SL SCH (21:37)
[2019-05-17] MEDS: rOPINIRole 1 MG TABLET PO SCH (21:37)
[2019-05-18] MEDS: hydrALAZINE 25 MG TABLET PO SCH ×3 (08:30→23:20)
[2019-05-18] MEDS: Ondansetron ODT 4 MG TAB.RAPDIS SL SCH (08:30)
[2019-05-18 09:03] LABS: Calcium 8.4 mg/dL (8.6-10.3); Magnesium 2.3 mg/dL (1.6-2.6); Phosphorous 6.7 mg/dL (2.7-4.5); Potassium 4.2 mEq/L (3.5-5.1)
[2019-05-18] MEDS ORDERED: Ondansetron ODT 4 MG TAB.RAPDIS SL PRN (10:00)
[2019-05-18] MEDS: Metoclopramide 10 MG/10 ML UD.LIQ PO SCH ×2 (11:48→17:28)
--- NOTE | 2019-05-18 13:16 | Internal Med Progress Note ---
Hospitalist Progress Note - Encounter Date of Encounter: 05/18/19 Time of Encounter: 11:30 - Subjective Interval History: Patient seen at bedside. Feeling better. Patient tolerated the clear liquid diet in the morning. Patient is willing to take solids for lunch. Denies any chest pain, shortness of breath. A little bit concerned about her medication and wanted to be started on statin. - Exam Vitals: Temp Pulse Resp BP Pulse Ox 97.9 F 70 16 100/58 100 05/18/19 12:05/18/19 12:05/18/19 12:05/18/19 12:05/18/19 12:01 Exam: General: Alert and oriented, no physical distress, able to follow commands. HEENT: No thyromegaly, no lymphadenopathy, no discharge. Eyes: No discharge. Respiratory: Normal vesicular breathing, no added sounds, breathing equal in both sides. CVS: Normal heart sounds, no murmurs, no edema. Extremities: No peripheral edema, peripheral pulses intact. Lymph nodes: No lymphadenopathy Gastrointestinal: Soft, nontender abdomen, normal abdominal sounds. No distention noted. Genitourinary: No paravertebral tenderness. Neurological: Alert and oriented. No focal deficits. Cranial nerves II-XII intact. - Assessment and Plan (1) Intractable nausea and vomiting Current Visit: Yes Status: Acute Assessment and Plan: Almost 1 week history of nausea and vomiting following the meals. Patient went to the emergency department [place], was prescribed metoclopramide but could not take the medication from the pharmacy because pharmacy was out of the medication. Etiology is unclear. Does not have any history of gastroparesis, neuropathy. Patient does not have any diabetes mellitus. Infection seems to be less likely. For now, patient is feeling better with antiemetics. Advance her diet to soft diet. Continue the patient on Zofran as needed. Ordered scheduling of Reglan. No other intervention required at this point. (2) ESRD (end stage renal disease) Current Visit: No Status: Chronic Assessment and Plan: History of ESRD on peritoneal dialysis. Nephrology consulted. Appreciate recommendations. (3) DVT prophylaxis Current Visit: No Status: Acute Assessment and Plan: Patient is mobile. Low risk for DVT. No prophylaxis at this point. (4) Hypertension Current Visit: Yes Status: Chronic Assessment and Plan: Blood pressure stable. Continue hydralazine and Coreg.. (5) Restless leg syndrome Current Visit: No Status: Chronic Assessment and Plan: Continue ropinirole. (6) Leukocytosis Current Visit: Yes Status: Chronic Assessment and Plan: Etiology unclear. 6 Of infection. This could be stress related. Repeat CBC tomorrow. - Time Spent with Patient Total time spent is greater than 50% in coordination of care (as documented) at patient's floor/unit and/or counseling patient: Plan of Care Discussed with: patient Internal Medicine: Result - Labs CBC & Chem 7: 05/17/19 16:33 05/18/19 05:49 Labs: Short CBC 05/17/19 Range/Units 16:33 WBC 12.5 H (4.3-11.1) K/mcL Hgb 9.2 L (11.5-15.4) g/dL Hct 28.0 L (35.3-44.9) % Plt Count 170 (140-400) K/mcL Neutrophils # 10.9 H (1.6-8.9) K/mcL BMP 05/17/19 05/18/19 16:33 05:49 Sodium 136 138 Potassium 4.4 4.2 Chloride 101 104 Carbon Dioxide 19 L 20 L BUN 61 H 61 H Creatinine 9.90 H 9.40 H Glucose 107 H 74 Calcium 8.9 8.4 L Cardiac Enzymes 05/17/19 Range/Units 16:33 Troponin I < 0.03 (< 0.04) ng/mL Liver Function 05/17/19 Range/Units 16:33 Total Bilirubin 0.3 (0.3-1.0) mg/dL Direct Bilirubin 0.1 (0.0-0.2) mg/dL AST 12 L (13-39) Units/L ALT 14 (7-52) Units/L Alkaline Phosphatase 59 (34-104) Units/L Albumin 3.6 (3.5-5.7) g/dL - Impressions Impressions Chest X-Ray 05/17/19 16:12 IMPRESSION: No acute cardiopulmonary disease. D/ 05/17/2019 17:05:14 [facility] Inter[facility]ting Provider: Juan Goodrich MD Abdomen/Pelvis CT 05/17/19 16:30 IMPRESSION: No acute abnormalities identified. Small amount of free intraperitoneal fluid, which presumably is reflective of dialysate. Moderate stool burden. Correlate with any clinical evidence of constipation. Mild diverticulosis, but without CT evidence of diverticulitis. Status post left nephrectomy with unchanged scarring in the left nephrectomy bed. D/ / Oracio Bueno MD / Oracio Bueno MD Interpreting Provider: Oracio Bueno MD - VTE Reasons for not Prescribing Prophylaxis: Treatment not Indicated - Low risk for VTE Consult Discharge Plan - Plan Referrals: Jomar Santizo DO [Primary Care Provider] - (1) Intractable nausea and vomiting Qualifiers: Vomiting type: unspecified Qualified Code(s): R11.2 - Nausea with vomiting, unspecified (4) Hypertension Qualifiers: Hypertension type: essential hypertension Qualified Code(s): I10 - Essential (primary) hypertension (6) Leukocytosis Qualifiers: Leukocytosis type: unspecified Qualified Code(s): D72.829 - Elevated white blood cell count, unspecified
--- NOTE | 2019-05-18 15:23 | Nephrology Consult Note ---
Date of Encounter: 05/18/19 Time of Encounter: 12:00 Assessment and Plan (1) ESRD (end stage renal disease) Current Visit: No Status: Chronic Will resume PD regimen tonight: 8hrs with 2.5% dianeal at 2liters with 4 fills via cycler Renal diet advised Fluid restriction advised (2) Intractable nausea and vomiting Current Visit: Yes Status: Acute Per primary. Likely gastroparesis Scheduled reglan with prn zofran should help Qualifiers: Vomiting type: unspecified Qualified Code(s): R11.2 - Nausea with vomiting, unspecified (3) Anemia Current Visit: Yes Status: Chronic Hgb noted at 9.2, will monitor Will dose with EPO Transfusion parameters per primary team Qualifiers: Anemia type: unspecified type Qualified Code(s): D64.9 - Anemia, unspecified History of Present Illness - Reason for Consult Consult date: 05/18/19 end stage renal disease Requesting physician: Juan Fonseca - History of Present Illness 53 y o female with PMH of ESRd on PD admitted with intractable N/V. Pt seen and examined feeling better today and tolerated some breakfast this am Past Med Surg Social Fam HX - Past Medical History Medical history: GERD, hyperlipidemia, hypertension Additional medical history: QUIT SMOKING 07/2015, 3 hernated disc in lower back Psychiatric history: no psych history - Past Surgical History Surgical History: other Additional surgical history: pd cath placement. 01/26/17 DX HYSTEROSCOPY/D&C @[place] [facility]. left thumb sx, with pins. - Social History Smoking Status: Former smoker Smokeless Tobacco Status: No Alcohol use: none Drug use: none - Family History Mother Living Status: Hx Family Cardiac Disorders: Yes Medications and Allergies Atorvastatin [Lipitor] 20 mg PO DAILY 11/09/15 [History] Epoetin Elfego [Epogen] 6,000 unit SQ TU 08/04/18 [History] Folic Acid/Vit B Complex and C [Dialyvite Tablet] 1 tab PO DAILY 08/04/18 [H istory] Carvedilol 12.5 mg PO BID #60 tab 08/06/18 [Rx] Omeprazole [PriLOSEC] 20 mg PO PRN PRN 02/04/19 [History] Acetaminophen [Tylenol Arthritis] 650 mg PO Q6H PRN 05/09/19 [History] Ondansetron ODT [Zofran ODT] 4 mg SL TID 05/09/19 [History] Oxycodone HCl/Acetaminophen [Percocet 5-325 mg Tablet] 1 tab PO TID PRN 05/09/19 [History] Cholecalciferol (D-3) [Vitamin D] 2,000 unit PO DAILY 05/10/19 [History] Fexofenadine HCl 60 mg PO DAILY 05/10/19 [History] Fluticasone Propionate Nasal [Flonase] 50 mcg NS DAILY 05/10/19 [History] Losartan/Hydrochlorothiazide [Hyzaar 100-25 Tablet] 1 each PO DAILY 05/10/19 [History] Ropinirole HCl [Requip] 1.5 mg PO HS 05/10/19 [History] Sevelamer [Renvela] 2 - 3 tab PO AD 05/10/19 [History] Metoclopramide [Reglan] 5 mg GTUBE Q8HR 5 Days #15 mls 05/16/19 [Rx] Ondansetron [Zofran ODT] 8 mg SL Q6HR 6 Days #16 tab.rapdis 05/16/19 [Rx] HydrALAZINE 25 mg PO TID 05/17/19 [History] Allergy/AdvReac Type Severity Reaction Status Date / Time celecoxib [From Celebrex] AdvReac Nausea Verified 05/16/19 15:29 Exam - Vital Signs Vital signs: Initial Vital Signs Temp Pulse Resp BP Pulse Ox 97.9 F 68 18 103/68 100 05/17/19 15:51 05/17/19 15:51 05/17/19 15:51 05/17/19 15:51 05/17/19 15:51 Vital Signs - Last 8 Hours Temp Pulse Resp BP Pulse Ox 05/18/19 12:01 97.9 F 70 16 100/58 100 Intake and Output 05/17/19 05/18/19 05/18/19 23:59 07:59 15:59 Intake Total 0 / 0 Balance 0 / 0 Intake: Oral 0 / 0 Other: Weight 72.1 kg Results - Lab Results 05/17/19 16:33 05/18/19 05:49 Most recent lab results 05/18/19 05:49 Calcium 8.4 L Phosphorus 6.7 H Magnesium 2.3 Consult Discharge Plan - Plan Referrals: Jomar Santizo DO [Primary Care Provider] -
--- NOTE | 2019-05-18 15:47 | Electrocardiograph Report ---
[address] [place] [address] Test Date: 2019-05-17 Pat Name: Trinity Constantino Department: EXAM2 Room: 2A39 Gender: Healthcare Specialist: : [id number] Requested By: Kevin Turner Order Number: [id number] Reading MD: Pratima Manzo Measurements Intervals Rosalia Rate: 66 P: 52 AL: 178 QRS: 46 QRSD: 96 T: 227 QT: 396 QTc: 415 Interpretive Statements Sinus rhythm Probable anterior infarct, age indeterminate Electronically Signed On 05-18-2019 15:46:07 EDT by Pratima Manzo
[2019-05-18] MEDS ORDERED: Perit. Dialysis with Dex 2.5 % 12,000 ML PERITONEAL ONE (19:00)
[2019-05-18] MEDS: rOPINIRole 1 MG TABLET PO SCH (23:16)
[2019-05-19 02:43] LABS: Basophils % 0.1 %; Eosinophils # 0.3 K/mcL (0.0-0.6); Eosinophils % 2.4 %; Hemoglobin 8.3 g/dL (11.5-15.4); Immature Granulocytes % 0.3 % (0-4); Lymphocytes # 1.2 K/mcL (0.6-4.6); Lymphocytes % 11.4 %; Mean Corpuscular HGB Conc 31.9 g/dL (31.6-35.5); Mean Corpuscular Hemoglobin 35.2 pg (28.0-33.3); Mean Corpuscular Volume 110.2 fL (83.0-100.0); Mean Platelet Volume 10.1 fL (9.4-12.4); Monocytes # 0.4 K/mcL (0.0-1.3); Neutrophils # 8.7 K/mcL (1.6-8.9); Platelet Count 165 K/mcL (140-400); Red Blood Count 2.36 M/mcL (3.82-4.97); Red Cell Distribution Width 13.8 % (11.5-14.5); Segmented Neutrophils % 81.8 %; White Blood Count 10.6 K/mcL (4.3-11.1)
[2019-05-19 03:01] LABS: Calcium 8.7 mg/dL (8.6-10.3)
[2019-05-19 03:21] LABS: Platelet Estimate Normal (Normal)
[2019-05-19 03:22] LABS: Anisocytosis 1+ (Not Present); Macrocytosis Present (Not Present)
[2019-05-19] MEDS: hydrALAZINE 25 MG TABLET PO SCH (08:00)
[2019-05-19] MEDS: Metoclopramide 10 MG/10 ML UD.LIQ PO SCH ×2 (08:01→12:15)
[2019-05-19] MEDS ORDERED: Fluticasone Propionate Nasal 50 MCG/SPRAY BOTTLE NS SCH (09:00)
[2019-05-19] MEDS ORDERED: Cholecalciferol (D-3) 1,000 UNIT TABLET PO SCH (09:00)
[2019-05-19] MEDS ORDERED: Gentamicin Oint 15 GM TUBE TP SCH (09:00)
--- NOTE | 2019-05-19 11:00 | Nephrology Progress Note ---
Date of Encounter: 05/19/19 Time of Encounter: 11:00 - Assessment and Plan (1) ESRD (end stage renal disease) Current Visit: No Status: Chronic Continue PD regimen nightly: 8hrs with 2.5% dianeal at 2liters with 4 fills via cycler Continue renal diet Continue fluid restriction Lytes stable (2) Intractable nausea and vomiting Current Visit: Yes Status: Acute Qualifiers: Vomiting type: unspecified Qualified Code(s): R11.2 - Nausea with vomiting, unspecified (3) Anemia Current Visit: Yes Status: Chronic Qualifiers: Anemia type: unspecified type Qualified Code(s): D64.9 - Anemia, unspecified Subjective Interval history: Pt seen and examined s/p PD last night Objective - Vital Signs Vital signs: Vital Signs Temp Pulse Resp BP Pulse Ox 05/19/19 08:14 97.7 F 16 159/81 05/19/19 07:55 97.7 F 74 16 159/81 100 05/19/19 04:35 97.7 F 88 16 128/84 100 05/19/19 00:05 98.6 F 95 17 135/73 98 05/18/19 22:45 98.5 F 18 126/77 05/18/19 19:20 98.4 F 77 18 135/74 100 05/18/19 18:44 130/82 05/18/19 15:42 98.0 F 70 16 130/82 100 05/18/19 12:01 97.9 F 70 16 100/58 100 Intake and Output 05/18/19 05/19/19 05/19/19 23:59 07:59 15:59 Intake Total 240 / 240 Output Total 150 / 150 Balance -150 / 90 240 / 90 Intake: Oral 240 / 240 Output: Urine 150 / 150 Other: Meal Dinner Breakfast Percent of Meal Consumed 100% 30% Weight 73.2 kg Patient Weight 05/19/19 23:59 Weight 73.2 kg - Lab 05/19/19 02:07 05/19/19 02:07 Most recent lab results 05/19/19 02:07 Calcium 8.7 - VTE Reasons for not Prescribing Prophylaxis: Treatment not Indicated - Low risk for VTE Consult Discharge Plan - Plan Referrals: Jomar Santizo DO [Primary Care Provider] -
--- NOTE | 2019-05-19 11:26 | Discharge Summary ---
- NOTES TO OUTPATIENT PROVIDER Notes to Outpatient Provider: Came with intractable nausea and vomting. Got better on antiemetics Date of Encounter: 05/19/19 Time of Encounter: 09:10 - Discharge Diagnosis (1) Intractable nausea and vomiting Priority: Primary Status: Acute Qualifiers: Vomiting type: unspecified Qualified Code(s): R11.2 - Nausea with vomiting, unspecified (2) ESRD (end stage renal disease) Priority: Secondary Status: Chronic (3) DVT prophylaxis Priority: Secondary Status: Acute (4) Hypertension Priority: Secondary Status: Chronic Qualifiers: Hypertension type: essential hypertension Qualified Code(s): I10 - Essential (primary) hypertension (5) Restless leg syndrome Priority: Secondary Status: Chronic (6) Leukocytosis Priority: Secondary Status: Chronic Qualifiers: Leukocytosis type: unspecified Qualified Code(s): D72.829 - Elevated white blood cell count, unspecified Hospital course: Ms. Constantino is a 54 year old female with basically presented to the hospital because of the intractable nausea and vomiting of almost 1 week duration. Etiology was unclear. Differential included infection or gastroparesis or anxiety. Patient did not have any source of infection. Although patient had a mild leukocytosis at the time of admission, WBC count improved while she was in the hospital off the antibiotics. Patient was started on antiemetics, patient felt better, diet was advanced slowly to clear liquid to GI visit diet and the patient tolerated it well. Patient has been feeling better today. She complains of fast heartbeat overnight but there was no arrhythmia recorded on the rhythm strip. Patient had sinus tachycardia which could be related to her anxiety or dialysis. Patient is being provided a prescription for Zofran and metoclopramide for as needed nausea and vomiting. Patient was counseled. Patient is being discharged in stable condition. - Time Spent with Patient Total time spent providing and/or coordinating discharge services: 43 - Discharge Medications Prescriptions: Continued Folic Acid/Vit B Complex and C [Dialyvite Tablet] 1 tab PO DAILY Epoetin Elfego [Epogen] 6,000 unit SQ TU Carvedilol 12.5 mg PO BID #60 tab Omeprazole [PriLOSEC] 20 mg PO DAILY PRN PRN Reason: Heartburn Acetaminophen [Tylenol Arthritis] 650 mg PO Q6H PRN PRN Reason: BACK PAIN Oxycodone HCl/Acetaminophen [Percocet 5-325 mg Tablet] 1 tab PO TID PRN PRN Reason: Pain Losartan/Hydrochlorothiazide [Hyzaar 100-25 Tablet] 1 each PO DAILY Ropinirole HCl [Requip] 1.5 mg PO HS Cholecalciferol (D-3) [Vitamin D] 4,000 unit PO BID Fluticasone Propionate Nasal [Flonase] 50 mcg NS DAILY Sevelamer [Renvela] 2 - 3 tab PO AD Fexofenadine HCl 60 mg PO DAILY hydrALAZINE [HydrALAZINE] 25 mg PO Q8HR Docusate [Colace] 100 mg PO BID Ondansetron [Zofran ODT] 8 mg SL Q6HR 6 Days #16 tab.rapdis Atorvastatin [Lipitor] 20 mg PO DAILY Changed Metoclopramide [Reglan] 5 mg ORAL RINSE Q8HR 5 Days #15 mls Home Medications: Atorvastatin [Lipitor] 20 mg PO DAILY 11/09/15 [History] Epoetin Elfego [Epogen] 6,000 unit SQ TU 08/04/18 [History] Folic Acid/Vit B Complex and C [Dialyvite Tablet] 1 tab PO DAILY 08/04/18 [History] Carvedilol 12.5 mg PO BID #60 tab 08/06/18 [Rx] Omeprazole [PriLOSEC] 20 mg PO DAILY PRN 02/04/19 [History] Acetaminophen [Tylenol Arthritis] 650 mg PO Q6H PRN 05/09/19 [History] Oxycodone HCl/Acetaminophen [Percocet 5-325 mg Tablet] 1 tab PO TID PRN 05/09/19 [History] Cholecalciferol (D-3) [Vitamin D] 4,000 unit PO BID 05/10/19 [History] Fexofenadine HCl 60 mg PO DAILY 05/10/19 [History] Fluticasone Propionate Nasal [Flonase] 50 mcg NS DAILY 05/10/19 [History] Losartan/Hydrochlorothiazide [Hyzaar 100-25 Tablet] 1 each PO DAILY 05/10/19 [History] Ropinirole HCl [Requip] 1.5 mg PO HS 05/10/19 [History] Sevelamer [Renvela] 2 - 3 tab PO AD 05/10/19 [History] hydrALAZINE [HydrALAZINE] 25 mg PO Q8HR 05/17/19 [History] Docusate [Colace] 100 mg PO BID 05/18/19 [History] Metoclopramide [Reglan] 5 mg ORAL RINSE Q8HR 5 Days #15 mls 05/19/19 [Rx] Ondansetron [Zofran ODT] 8 mg SL Q6HR 6 Days #16 tab.rapdis 05/19/19 [Rx] Allergies/Adverse Reactions: Allergy/AdvReac Type Severity Reaction Status Date / Time celecoxib [From Celebrex] AdvReac Nausea Verified 05/18/19 15:51 Date of admission: 05/17/19 18:53 Primary care physician: Jomar Santizo DO Consults: 05/17/19 19:42 Consult to Nephrology [CONS] Routine Consulting Provider: Kidney Margareth/PABLO/DAVIAN/TORO Reason for Consult: ESRD on PD Call Completed: Yes 05/18/19 16:30 Consult to Dialysis [CONS] ONCE 05/19/19 16:30 Consult to Dialysis [CONS] ONCE - Constitutional Vitals: Temp Pulse Resp BP Pulse Ox 97.7 F 74 16 159/81 100 05/19/19 08:14 05/19/19 07:55 05/19/19 08:14 05/19/19 08:14 05/19/19 07:55 Exam: General: Alert and oriented, no physical distress, able to follow commands. HEENT: No thyromegaly, no lymphadenopathy, no discharge. Eyes: No discharge. Respiratory: Normal vesicular breathing, no added sounds, breathing equal in both sides. CVS: Normal heart sounds, no murmurs, no edema. Extremities: No peripheral edema, peripheral pulses intact. Lymph nodes: No lymphadenopathy Gastrointestinal: Soft, nontender abdomen, normal abdominal sounds. No distention noted. Genitourinary: No paravertebral tenderness. Neurological: Alert and oriented. No focal deficits. Cranial nerves II-XII intact. - Patient Status Disposition: Home, Self-Care Condition: Fair Functional capacity at discharge: independent ambulation Overall status at discharge: patient is back to baseline - Discharge Instructions Follow Up With: Jomar Santizo DO [Primary Care Provider] - - Diet and Activity Activity: increase activity as tolerated Diet: advance to your usual diet - VTE Reasons for not Prescribing Prophylaxis: Treatment not Indicated - Low risk for VTE
[2019-05-19 11:37] VITALS: BP 103/63
== END 2019-05-19 14:40 | disposition home or self-care (01) ==
LOC: EMEROOARM 15:49 → 2ANU 15:49 → SUATTDRO 18:53 → 2ANU 19:40
PROVIDERS: ADMIT Internal Medicine; ATTEND Internal Medicine

== ENCOUNTER 2019-11-09 08:52 | Observation (INO) ==
[2019-11-09 10:55] LABS: Bilirubin,Urine Negative (Negative); Blood,Urine Negative (Negative); Clarity,Urine Cloudy (Clear); Color,Urine Yellow (Yellow); Glucose,Urine (UA) 250 mg/dL (Normal); Ketones,Urine Negative (Negative); Leukocyte Esterase,Urine Large (Negative); Nitrite,Urine Negative (Negative); PH,Urine 6.5 pH Units (5.0-8.0); Protein,Urine >=300 mg/dL (Neg-Trace); Specific Gravity,Urine 1.016 (1.010-1.025); Urobilinogen,Urine Normal (Normal)
[2019-11-09 11:06] LABS: Squamous Epithelial Cell,Urine Moderate per lpf (None-Few); WBC,Urine 30-50 per hpf (0-3)
[2019-11-09 11:07] LABS: Bacteria,Urine Few per hpf (None-Few); RBC,Urine 0-3 per hpf (0-3)
[2019-11-09 11:15] LABS: Hemoglobin 11.1 g/dL (11.5-15.4); Mean Corpuscular HGB Conc 32.6 g/dL (31.6-35.5); Mean Corpuscular Hemoglobin 31.8 pg (28.0-33.3); Mean Corpuscular Volume 97.4 fL (83.0-100.0); Mean Platelet Volume 9.2 fL (9.4-12.4); Platelet Count 219 K/mcL (140-400); Red Blood Count 3.49 M/mcL (3.82-4.97); Red Cell Distribution Width 13.7 % (11.5-14.5); White Blood Count 12.2 K/mcL (4.3-11.1)
[2019-11-09 11:36] LABS: Albumin 3.6 g/dL (3.5-5.7); Albumin/Globulin Ratio 1.4 (1.1-2.2); Bilirubin,Indirect 0.3 mg/dL (0.0-1.0); Bilirubin,Total 0.3 mg/dL (0.3-1.0); Calcium 8.2 mg/dL (8.6-10.3); Globulin 2.5 g/dL (2.4-3.5); Total Protein 6.1 g/dL (6.4-8.9)
[2019-11-09] MEDS ORDERED: cefTRIAXone 1,000 MG in 0.9 % Sodium Chloride Mini Bag 100 ML IVPB ONE (12:17)
[2019-11-09] MEDS ORDERED: Ondansetron 4 MG/2 ML VIAL IVP PRN (14:18)
[2019-11-09] MEDS ORDERED: Naloxone 0.4 MG/ML INJ IVP PRN (14:18)
[2019-11-09] MEDS ORDERED: Acetaminophen 325 MG TABLET PO PRN (14:18)
[2019-11-09] MEDS ORDERED: Ipratropium Neb 0.5 MG NEBULIZER IH PRN (14:28)
[2019-11-09] MEDS: Ipratropium/Albuterol Neb 3 ML IH SCH ×2 (15:32→22:04)
[2019-11-09 16:21] LABS: Adenovirus Not Detected (Not Detect); Coronavirus 229E Not Detected (Not Detect); Coronavirus HKU1 Not Detected (Not Detect); Coronavirus NL63 Not Detected (Not Detect); Coronavirus OC43 Not Detected (Not Detect); Human Metapneumovirus Not Detected (Not Detect); Human Rhinovirus/Enterovirus Not Detected (Not Detect); Influenza A Subtype 2009 H1 Not Detected (Not Detect); Influenza A Untypeable Not Detected (Not Detect)
[2019-11-09 16:22] LABS: Bordetella Pertussis Not Detected (Not Detect); Chlamydophila pneumoniae Not Detected (Not Detect); Influenza B Not Detected (Not Detect); Mycoplasma pneumoniae Not Detected (Not Detect); Parainfluenza Virus 1 Not Detected (Not Detect); Parainfluenza Virus 2 Not Detected (Not Detect); Parainfluenza Virus 3 Not Detected (Not Detect); Parainfluenza Virus 4 Not Detected (Not Detect); Respiratory Syncytial Virus DETECTED (Not Detect)
[2019-11-09] MEDS ORDERED: hydrALAZINE 25 MG TABLET PO ONE (16:43)
[2019-11-09] MEDS: carvediloL 6.25 MG TABLET PO SCH (18:27)
[2019-11-09] MEDS ORDERED: Perit. Dialysis with Dex 2.5 % 6,000 ML PERITONEAL ONE (19:00)
[2019-11-09 21:41] LABS: Hepatitis B Surface Antibody < 3.10 mIU/mL
[2019-11-09] MEDS: Perit. Dialysis with Dex 4.25% 6,000 ML PERITONEAL SCH (21:48)
[2019-11-09 21:53] LABS: Hepatitis B Surface Antigen Nonreactive (Nonreactive)
[2019-11-10] MEDS: Ipratropium/Albuterol Neb 3 ML IH SCH ×4 (03:48→22:35)
[2019-11-10] MEDS: predniSONE 20 MG TABLET PO SCH (07:52)
[2019-11-10] MEDS: carvediloL 6.25 MG TABLET PO SCH ×2 (07:52→17:28)
[2019-11-10] MEDS: Gentamicin Oint 15 GM TUBE TP SCH (07:57)
[2019-11-10 11:06] LABS: Basophils % 0.2 %; Eosinophils # 0.1 K/mcL (0.0-0.6); Eosinophils % 0.6 %; Hematocrit 35.1 % (35.3-44.9); Hemoglobin 11.3 g/dL (11.5-15.4); Immature Granulocytes % 1.5 % (0-4); Lymphocytes # 1.2 K/mcL (0.6-4.6); Lymphocytes % 9.3 %; Mean Corpuscular HGB Conc 32.2 g/dL (31.6-35.5); Mean Corpuscular Hemoglobin 32.7 pg (28.0-33.3); Mean Corpuscular Volume 101.4 fL (83.0-100.0); Monocytes # 0.3 K/mcL (0.0-1.3); Monocytes % 2.1 %; Neutrophils # 11.2 K/mcL (1.6-8.9); Platelet Count 184 K/mcL (140-400); Red Blood Count 3.46 M/mcL (3.82-4.97); Segmented Neutrophils % 86.3 %
[2019-11-10 11:24] LABS: Calcium 8.5 mg/dL (8.6-10.3); Potassium 4.6 mEq/L (3.5-5.1)
[2019-11-10] MEDS: Valsartan 80 MG TABLET PO SCH (12:47)
[2019-11-10] MEDS: Furosemide 40 MG TABLET PO SCH (12:47)
[2019-11-10] MEDS ORDERED: cefTRIAXone 1,000 MG in Water for inj. (sterile) 10 ML IVPB SCH (13:00)
[2019-11-10] MEDS: cloNIDine HCl 0.1 MG TABLET PO SCH ×2 (15:47→21:24)
[2019-11-10] MEDS: hydrALAZINE 25 MG TABLET PO SCH (17:28)
[2019-11-10] MEDS: Perit. Dialysis with Dex 4.25% 6,000 ML PERITONEAL SCH (18:51)
[2019-11-10] MEDS ORDERED: Perit. Dialysis with Dex 4.25% 6,000 ML PERITONEAL SCH (19:00)
[2019-11-10] MEDS ORDERED: Perit. Dialysis with Dex 2.5 % 6,000 ML PERITONEAL ONE (19:00)
[2019-11-11] MEDS: hydrALAZINE 25 MG TABLET PO SCH ×3 (00:12→15:58)
[2019-11-11] MEDS: Ipratropium/Albuterol Neb 3 ML IH SCH ×3 (03:50→15:13)
[2019-11-11 06:51] LABS: Basophils % 0.2 %; Eosinophils % 0.3 %; Hematocrit 33.6 % (35.3-44.9); Hemoglobin 11.3 g/dL (11.5-15.4); Immature Granulocytes % 1.5 % (0-4); Lymphocytes # 1.7 K/mcL (0.6-4.6); Lymphocytes % 13.6 %; Mean Corpuscular HGB Conc 33.6 g/dL (31.6-35.5); Mean Corpuscular Hemoglobin 32.1 pg (28.0-33.3); Mean Corpuscular Volume 95.5 fL (83.0-100.0); Mean Platelet Volume 9.1 fL (9.4-12.4); Monocytes # 0.6 K/mcL (0.0-1.3); Monocytes % 4.3 %; Neutrophils # 10.2 K/mcL (1.6-8.9); Platelet Count 190 K/mcL (140-400); Red Blood Count 3.52 M/mcL (3.82-4.97); Red Cell Distribution Width 13.8 % (11.5-14.5); Segmented Neutrophils % 80.1 %; White Blood Count 12.7 K/mcL (4.3-11.1)
[2019-11-11 07:14] LABS: Calcium 8.6 mg/dL (8.6-10.3); Potassium 3.5 mEq/L (3.5-5.1)
[2019-11-11] MEDS: carvediloL 6.25 MG TABLET PO SCH ×2 (07:58→15:58)
[2019-11-11] MEDS: Furosemide 40 MG TABLET PO SCH (07:59)
[2019-11-11] MEDS: Valsartan 80 MG TABLET PO SCH (07:59)
[2019-11-11] MEDS: predniSONE 20 MG TABLET PO SCH (07:59)
[2019-11-11] MEDS: cloNIDine HCl 0.1 MG TABLET PO SCH ×2 (08:02→15:58)
[2019-11-11] MEDS: Gentamicin Oint 15 GM TUBE TP SCH (08:02)
[2019-11-11] MEDS ORDERED: Gabapentin 100 MG CAPSULE PO SCH (09:00)
[2019-11-11 16:44] VITALS: BP 189/94
[2019-11-11] MEDS ORDERED: Perit. Dialysis with Dex 2.5 % 6,000 ML PERITONEAL ONE (19:00)
[2019-11-11] MEDS ORDERED: Perit. Dialysis with Dex 4.25% 6,000 ML PERITONEAL SCH (19:00)
[2019-11-11 21:32] LABS: Enterococcus by PCR Not Detected (Not Detect); Staphylococcus aureus by PCR Not Detected (Not Detect); Staphylococcus by PCR Not Detected (Not Detect); Streptococcus agalactiae(B)PCR Not Detected (Not Detect); Streptococcus by PCR Not Detected (Not Detect); blaKPC Carbapenem-Resist Gene Not Detected (Not Detect); mecA Methicillin-Resist Gene Not Detected (Not Detect); vanA/B Vancomycin-Resist Genes Not Detected (Not Detect)
[2019-11-11 21:33] LABS: Acinetobacter baumannii by PCR Not Detected (Not Detect); Candida albicans by PCR Not Detected (Not Detect); Candida glabrata by PCR Not Detected (Not Detect); Candida krusei by PCR Not Detected (Not Detect); Candida parapsilosis by PCR Not Detected (Not Detect); Candida tropicalis by PCR Not Detected (Not Detect); Enterobacter cloacae Cmplx PCR Not Detected (Not Detect); Enterobacteriaceae by PCR Not Detected (Not Detect); Escherichia coli by PCR Not Detected (Not Detect); Klebsiella oxytoca by PCR Not Detected (Not Detect); Klebsiella pneumoniae by PCR Not Detected (Not Detect); Proteus by PCR Not Detected (Not Detect); Pseudomonas aeruginosa by PCR Not Detected (Not Detect); Serratia marcescens by PCR Not Detected (Not Detect); Streptococcus pneumoniae PCR Not Detected (Not Detect); Streptococcus pyogenes (A) PCR Not Detected (Not Detect)
== END 2019-11-11 19:20 | disposition home or self-care (01) ==
LOC: EMEROOARM 08:52 → 2ANU 08:52 → SUATTDRO 13:24 → 2ANU 14:20
PROVIDERS: ADMIT Internal Medicine; ATTEND Internal Medicine

== ENCOUNTER 2019-11-13 11:06 | Inpatient (IN) ==
[2019-11-13 12:45] LABS: Hematocrit 35.7 % (35.3-44.9); Mean Corpuscular HGB Conc 33.6 g/dL (31.6-35.5); Mean Corpuscular Hemoglobin 32.2 pg (28.0-33.3); Mean Corpuscular Volume 95.7 fL (83.0-100.0); Mean Platelet Volume 9.3 fL (9.4-12.4); Platelet Count 183 K/mcL (140-400); Red Blood Count 3.73 M/mcL (3.82-4.97); Red Cell Distribution Width 13.8 % (11.5-14.5); White Blood Count 15.4 K/mcL (4.3-11.1)
[2019-11-13] MEDS ORDERED: Piperacillin/Tazobactam 3.375 GM in Water for inj. (sterile) 20 ML IVP ONE (15:26)
[2019-11-13 16:47] LABS: Albumin 3.8 g/dL (3.5-5.7); Albumin/Globulin Ratio 1.6 (1.1-2.2); Bilirubin,Total 0.4 mg/dL (0.3-1.0); Calcium 8.5 mg/dL (8.6-10.3); Globulin 2.4 g/dL (2.4-3.5); Potassium 4.4 mEq/L (3.5-5.1); Total Protein 6.2 g/dL (6.4-8.9)
[2019-11-13] MEDS ORDERED: Acetaminophen 325 MG TABLET PO PRN (20:48)
[2019-11-13] MEDS ORDERED: Ipratropium/Albuterol Neb 3 ML IH PRN (20:52)
[2019-11-13] MEDS: Sucroferric Oxyhydroxide [Velphoro] 500 MG PO SCH (21:42)
[2019-11-13] MEDS: cloNIDine HCl 0.1 MG TABLET PO SCH (21:43)
[2019-11-13] MEDS: carvediloL 6.25 MG TABLET PO SCH (21:43)
[2019-11-13] MEDS: hydrALAZINE 25 MG TABLET PO SCH (21:43)
[2019-11-13] MEDS: *HR* Heparin 5,000 UNIT/ML VIAL SQ SCH (23:16)
[2019-11-14] MEDS ORDERED: *HR* Promethazine 25 MG/ML VIAL IVP PRN (03:55)
[2019-11-14] MEDS: *HR* Heparin 5,000 UNIT/ML VIAL SQ SCH ×3 (04:07→20:12)
[2019-11-14] MEDS: hydrALAZINE 25 MG TABLET PO SCH ×3 (04:08→20:11)
[2019-11-14] MEDS ORDERED: Perit. Dialysis with Dex 1.5 % 12,000 ML PERITONEAL SCH (08:08)
[2019-11-14] MEDS: Renal Vitamin 1 CAP CAPSULE PO SCH (08:25)
[2019-11-14] MEDS: cloNIDine HCl 0.1 MG TABLET PO SCH ×3 (08:25→20:10)
[2019-11-14] MEDS: Valsartan 80 MG TABLET PO SCH (08:25)
[2019-11-14] MEDS: Gabapentin 100 MG CAPSULE PO SCH (08:25)
[2019-11-14] MEDS: carvediloL 6.25 MG TABLET PO SCH ×2 (08:26→16:47)
[2019-11-14] MEDS: Furosemide 40 MG TABLET PO SCH (08:26)
[2019-11-14] MEDS: Sucroferric Oxyhydroxide [Velphoro] 500 MG PO SCH ×3 (08:26→20:13)
[2019-11-14] MEDS ORDERED: predniSONE 10 MG TABLET PO SCH (09:00)
[2019-11-14] MEDS: Perit. Dialysis with Dex 1.5 % 12,000 ML PERITONEAL SCH (10:17)
[2019-11-14] MEDS: Gentamicin Oint 15 GM TUBE TP SCH (11:01)
[2019-11-14 13:19] LABS: Basophils % 0.1 %; Eosinophils # 0.1 K/mcL (0.0-0.6); Eosinophils % 0.6 %; Hematocrit 35.3 % (35.3-44.9); Hemoglobin 11.9 g/dL (11.5-15.4); Lymphocytes # 1.2 K/mcL (0.6-4.6); Lymphocytes % 8.3 %; Mean Corpuscular HGB Conc 33.7 g/dL (31.6-35.5); Mean Corpuscular Hemoglobin 32.5 pg (28.0-33.3); Mean Corpuscular Volume 96.4 fL (83.0-100.0); Mean Platelet Volume 9.5 fL (9.4-12.4); Monocytes # 0.3 K/mcL (0.0-1.3); Monocytes % 2.4 %; Neutrophils # 12.3 K/mcL (1.6-8.9); Platelet Count 169 K/mcL (140-400); Red Blood Count 3.66 M/mcL (3.82-4.97); Red Cell Distribution Width 13.8 % (11.5-14.5); Segmented Neutrophils % 87.6 %
[2019-11-14 13:37] LABS: Calcium 8.6 mg/dL (8.6-10.3); Potassium 4.1 mEq/L (3.5-5.1)
[2019-11-14] MEDS ORDERED: Mag Hydrox/Al Hydrox/Simeth 30 ML UDC PO ONE (21:59)
[2019-11-15] MEDS: *HR* Heparin 5,000 UNIT/ML VIAL SQ SCH ×4 (02:41→21:11)
[2019-11-15 04:26] LABS: Basophils % 0.1 %; Eosinophils # 0.2 K/mcL (0.0-0.6); Eosinophils % 1.1 %; Immature Granulocytes % 0.8 % (0-4); Mean Corpuscular HGB Conc 32.3 g/dL (31.6-35.5); Mean Corpuscular Hemoglobin 32.2 pg (28.0-33.3); Mean Corpuscular Volume 99.7 fL (83.0-100.0); Mean Platelet Volume 9.7 fL (9.4-12.4); Monocytes # 0.7 K/mcL (0.0-1.3); Monocytes % 4.8 %; Neutrophils # 9.6 K/mcL (1.6-8.9); Platelet Count 140 K/mcL (140-400); Red Blood Count 3.11 M/mcL (3.82-4.97); Red Cell Distribution Width 13.7 % (11.5-14.5); Segmented Neutrophils % 71.2 %; White Blood Count 13.4 K/mcL (4.3-11.1)
[2019-11-15 04:44] LABS: Calcium 7.6 mg/dL (8.6-10.3); Potassium 3.9 mEq/L (3.5-5.1)
[2019-11-15] MEDS: hydrALAZINE 25 MG TABLET PO SCH ×3 (05:19→21:04)
[2019-11-15] MEDS ORDERED: Acetaminophen 325 MG TABLET PO PRN (07:01)
[2019-11-15] MEDS ORDERED: Perit. Dialysis with Dex 1.5 % 12,000 ML PERITONEAL ONE (08:00)
[2019-11-15] MEDS: carvediloL 6.25 MG TABLET PO SCH ×2 (09:18→16:41)
[2019-11-15] MEDS: Gabapentin 100 MG CAPSULE PO SCH (09:18)
[2019-11-15] MEDS: Valsartan 80 MG TABLET PO SCH (09:18)
[2019-11-15] MEDS: Renal Vitamin 1 CAP CAPSULE PO SCH (09:18)
[2019-11-15] MEDS: Furosemide 40 MG TABLET PO SCH (09:18)
[2019-11-15] MEDS: cloNIDine HCl 0.1 MG TABLET PO SCH ×3 (09:18→21:04)
[2019-11-15] MEDS: Gentamicin Oint 15 GM TUBE TP SCH (09:19)
[2019-11-15] MEDS: Perit. Dialysis with Dex 1.5 % 12,000 ML PERITONEAL SCH (20:43)
[2019-11-16 04:50] LABS: Basophils % 0.2 %; Eosinophils # 0.2 K/mcL (0.0-0.6); Eosinophils % 1.4 %; Hematocrit 30.5 % (35.3-44.9); Immature Granulocytes % 0.9 % (0-4); Lymphocytes # 2.8 K/mcL (0.6-4.6); Lymphocytes % 20.2 %; Mean Corpuscular HGB Conc 32.8 g/dL (31.6-35.5); Mean Corpuscular Hemoglobin 33.1 pg (28.0-33.3); Mean Platelet Volume 9.7 fL (9.4-12.4); Monocytes # 0.5 K/mcL (0.0-1.3); Monocytes % 3.9 %; Neutrophils # 10.2 K/mcL (1.6-8.9); Platelet Count 138 K/mcL (140-400); Red Blood Count 3.02 M/mcL (3.82-4.97); Red Cell Distribution Width 13.7 % (11.5-14.5); Segmented Neutrophils % 73.4 %; White Blood Count 13.9 K/mcL (4.3-11.1)
[2019-11-16 04:56] LABS: Calcium 7.9 mg/dL (8.6-10.3); Potassium 4.4 mEq/L (3.5-5.1)
[2019-11-16 07:40] VITALS: BP 145/85
[2019-11-16] MEDS: cloNIDine HCl 0.1 MG TABLET PO SCH (08:31)
[2019-11-16] MEDS: Gabapentin 100 MG CAPSULE PO SCH (08:31)
[2019-11-16] MEDS: Renal Vitamin 1 CAP CAPSULE PO SCH (08:31)
[2019-11-16] MEDS: hydrALAZINE 25 MG TABLET PO SCH (08:31)
[2019-11-16] MEDS: Valsartan 80 MG TABLET PO SCH (08:32)
[2019-11-16] MEDS: carvediloL 6.25 MG TABLET PO SCH (08:32)
[2019-11-16] MEDS: Furosemide 40 MG TABLET PO SCH (08:32)
[2019-11-16] MEDS: Gentamicin Oint 15 GM TUBE TP SCH (08:32)
== END 2019-11-16 11:10 | disposition home or self-care (01) | DRG 871 ==
LOC: EMEROOARM 11:06 → 2ANU 11:06 → SUATTDRO 22:31
PROVIDERS: ADMIT Internal Medicine; ATTEND Internal Medicine

== ENCOUNTER 2019-11-30 12:43 | Inpatient (IN) ==
[2019-11-30] MEDS ORDERED: Piperacillin/Tazobactam 3.375 GM in 0.9 % Sodium Chloride Mini Bag 100 ML IVPB ONE (13:02)
[2019-11-30] MEDS ORDERED: 0.9 % Sodium Chloride 1,000 ML IVC ONE (13:02)
[2019-11-30 13:44] LABS: Basophils % 0.1 %; Eosinophils # 0.1 K/mcL (0.0-0.6); Eosinophils % 0.9 %; Hematocrit 29.9 % (35.3-44.9); Hemoglobin 9.9 g/dL (11.5-15.4); Immature Granulocytes % 0.8 % (0-4); Lymphocytes # 0.3 K/mcL (0.6-4.6); Mean Corpuscular HGB Conc 33.1 g/dL (31.6-35.5); Mean Corpuscular Volume 99.7 fL (83.0-100.0); Mean Platelet Volume 9.1 fL (9.4-12.4); Monocytes # 0.4 K/mcL (0.0-1.3); Neutrophils # 9.2 K/mcL (1.6-8.9); Platelet Count 227 K/mcL (140-400); Red Cell Distribution Width 14.8 % (11.5-14.5); Segmented Neutrophils % 91.2 %; White Blood Count 10.1 K/mcL (4.3-11.1)
[2019-11-30 14:08] LABS: Albumin 3.6 g/dL (3.5-5.7); Albumin/Globulin Ratio 1.3 (1.1-2.2); Bilirubin,Direct 0.1 mg/dL (0.0-0.2); Bilirubin,Indirect 0.3 mg/dL (0.0-1.0); Bilirubin,Total 0.4 mg/dL (0.3-1.0); Calcium 7.9 mg/dL (8.6-10.3); Globulin 2.8 g/dL (2.4-3.5); Potassium 4.4 mEq/L (3.5-5.1); Total Protein 6.4 g/dL (6.4-8.9); Troponin I 0.11 ng/mL (< 0.04)
[2019-11-30 15:01] LABS: Bilirubin,Urine Negative (Negative); Blood,Urine Negative (Negative); Clarity,Urine Clear (Clear); Color,Urine Yellow (Yellow); Glucose,Urine (UA) 100 mg/dL (Normal); Ketones,Urine Negative (Negative); Leukocyte Esterase,Urine Small (Negative); Nitrite,Urine Negative (Negative); Protein,Urine >=300 mg/dL (Neg-Trace); Specific Gravity,Urine 1.017 (1.010-1.025); Urobilinogen,Urine Normal (Normal)
[2019-11-30 15:04] LABS: Bacteria,Urine Few per hpf (None-Few); Hyaline Casts,Urine None Seen per lpf (None-Few); Squamous Epithelial Cell,Urine Many per lpf (None-Few); WBC,Urine 15-30 per hpf (0-3)
[2019-11-30] MEDS ORDERED: 0.9 % Sodium Chloride 500 ML IVC ONE (16:16)
[2019-11-30] MEDS ORDERED: Naloxone 0.4 MG/ML INJ IVP PRN (17:06)
[2019-11-30] MEDS ORDERED: Ipratropium/Albuterol Neb 3 ML IH PRN (17:08)
[2019-11-30] MEDS ORDERED: Vancomycin 1 EACH in 0.9 % Sodium Chloride 250 ML IVPB PRN (18:00)
[2019-11-30] MEDS ORDERED: Perflutren Lipid Microsphere 1.3 ML in 0.9 % Sodium Chloride 8.7 ML IVP ONE (21:12)
[2019-11-30] MEDS: carvediloL 6.25 MG TABLET PO SCH (21:27)
[2019-11-30] MEDS: Cholecalciferol (D-3) 1,000 UNIT (25MCG) TABLET PO SCH (21:27)
[2019-11-30] MEDS: *HR* Heparin 5,000 UNIT/ML VIAL SQ SCH ×2 (21:27→21:38)
[2019-11-30] MEDS: Aspirin Enteric Coated 325 MG Tablet PO SCH (21:27)
[2019-11-30] MEDS: Piperacillin/Tazobactam 3.375 GM in 0.9 % Sodium Chloride Mini Bag 100 ML IVPB SCH (21:35)
[2019-12-01 02:39] LABS: Adenovirus Not Detected (Not Detect); Bordetella Pertussis Not Detected (Not Detect); Chlamydophila pneumoniae Not Detected (Not Detect); Coronavirus 229E Not Detected (Not Detect); Coronavirus HKU1 Not Detected (Not Detect); Coronavirus NL63 Not Detected (Not Detect); Coronavirus OC43 Not Detected (Not Detect); Human Metapneumovirus Not Detected (Not Detect); Human Rhinovirus/Enterovirus Not Detected (Not Detect); Influenza A Subtype 2009 H1 Not Detected (Not Detect); Influenza B Not Detected (Not Detect); Mycoplasma pneumoniae Not Detected (Not Detect); Parainfluenza Virus 1 Not Detected (Not Detect); Parainfluenza Virus 2 Not Detected (Not Detect); Parainfluenza Virus 3 Not Detected (Not Detect); Parainfluenza Virus 4 Not Detected (Not Detect); Respiratory Syncytial Virus Not Detected (Not Detect)
[2019-12-01] MEDS: Piperacillin/Tazobactam 3.375 GM in 0.9 % Sodium Chloride Mini Bag 100 ML IVPB SCH ×2 (05:42→17:11)
[2019-12-01] MEDS: *HR* Heparin 5,000 UNIT/ML VIAL SQ SCH ×2 (05:46→17:11)
[2019-12-01 06:43] LABS: Basophils % 0.2 %; Eosinophils % 0.1 %; Hematocrit 26.4 % (35.3-44.9); Immature Granulocytes % 0.6 % (0-4); Lymphocytes % 8.6 %; Mean Corpuscular HGB Conc 31.4 g/dL (31.6-35.5); Mean Corpuscular Hemoglobin 32.2 pg (28.0-33.3); Mean Corpuscular Volume 102.3 fL (83.0-100.0); Mean Platelet Volume 9.2 fL (9.4-12.4); Monocytes # 0.5 K/mcL (0.0-1.3); Monocytes % 4.5 %; Neutrophils # 9.7 K/mcL (1.6-8.9); Platelet Count 210 K/mcL (140-400); Red Blood Count 2.58 M/mcL (3.82-4.97); Red Cell Distribution Width 14.9 % (11.5-14.5); White Blood Count 11.2 K/mcL (4.3-11.1)
[2019-12-01 06:44] LABS: Hemoglobin 8.3 g/dL (11.5-15.4)
[2019-12-01 06:58] LABS: Calcium 7.2 mg/dL (8.6-10.3); Magnesium 1.7 mg/dL (1.6-2.6); Potassium 4.2 mEq/L (3.5-5.1)
[2019-12-01] MEDS: Furosemide 40 MG TABLET PO SCH (08:39)
[2019-12-01] MEDS: Aspirin Enteric Coated 325 MG Tablet PO SCH (08:39)
[2019-12-01] MEDS: carvediloL 6.25 MG TABLET PO SCH ×2 (08:39→17:11)
[2019-12-01] MEDS: Cholecalciferol (D-3) 1,000 UNIT (25MCG) TABLET PO SCH ×2 (08:39→21:33)
[2019-12-01] MEDS: Gabapentin 100 MG CAPSULE PO SCH (08:40)
[2019-12-01] MEDS: Ondansetron 4 MG/2 ML VIAL IVP PRN (11:43)
[2019-12-01] MEDS ORDERED: Perit. Dialysis with Dex 2.5 % 12,000 ML PERITONEAL ONE (19:00)
[2019-12-02 02:22] LABS: Basophils % 0.2 %; Eosinophils # 0.3 K/mcL (0.0-0.6); Eosinophils % 2.1 %; Hematocrit 25.7 % (35.3-44.9); Hemoglobin 8.1 g/dL (11.5-15.4); Immature Granulocytes % 0.7 % (0-4); Lymphocytes # 1.2 K/mcL (0.6-4.6); Lymphocytes % 8.5 %; Mean Corpuscular HGB Conc 31.5 g/dL (31.6-35.5); Mean Corpuscular Hemoglobin 32.7 pg (28.0-33.3); Mean Corpuscular Volume 103.6 fL (83.0-100.0); Mean Platelet Volume 9.2 fL (9.4-12.4); Monocytes # 0.5 K/mcL (0.0-1.3); Neutrophils # 11.5 K/mcL (1.6-8.9); Platelet Count 207 K/mcL (140-400); Red Blood Count 2.48 M/mcL (3.82-4.97); Segmented Neutrophils % 84.5 %; White Blood Count 13.6 K/mcL (4.3-11.1)
[2019-12-02 02:39] LABS: Calcium 7.3 mg/dL (8.6-10.3); Potassium 3.7 mEq/L (3.5-5.1)
[2019-12-02] MEDS: Piperacillin/Tazobactam 3.375 GM in 0.9 % Sodium Chloride Mini Bag 100 ML IVPB SCH ×2 (05:33→17:44)
[2019-12-02] MEDS: *HR* Heparin 5,000 UNIT/ML VIAL SQ SCH ×2 (05:33→17:45)
[2019-12-02] MEDS: carvediloL 6.25 MG TABLET PO SCH ×2 (08:17→16:16)
[2019-12-02] MEDS: Cholecalciferol (D-3) 1,000 UNIT (25MCG) TABLET PO SCH ×2 (08:17→21:07)
[2019-12-02] MEDS: Aspirin Enteric Coated 81 MG Tablet PO SCH (08:18)
[2019-12-02] MEDS: Furosemide 40 MG TABLET PO SCH (08:18)
[2019-12-02] MEDS: Valsartan 80 MG TABLET PO SCH (08:18)
[2019-12-02] MEDS: Gabapentin 100 MG CAPSULE PO SCH (08:18)
[2019-12-02] MEDS ORDERED: Aminoglycoside Consult 1 EACH MC ONE (12:14)
[2019-12-02] MEDS: Ondansetron 4 MG/2 ML VIAL IVP PRN (16:15)
[2019-12-02] MEDS: Acetaminophen 325 MG TABLET PO PRN (16:16)
[2019-12-02] MEDS ORDERED: Perit. Dialysis with Dex 2.5 % 12,000 ML PERITONEAL ONE (19:00)
[2019-12-03] MEDS: Acetaminophen 325 MG TABLET PO PRN (01:17)
[2019-12-03] MEDS ORDERED: *HR* HYDROcodone/Acet 5/325 mg TABLET PO ONE (03:49)
[2019-12-03] MEDS: Piperacillin/Tazobactam 3.375 GM in 0.9 % Sodium Chloride Mini Bag 100 ML IVPB SCH (05:42)
[2019-12-03] MEDS: *HR* Heparin 5,000 UNIT/ML VIAL SQ SCH (05:42)
[2019-12-03 05:43] LABS: Basophils % 0.3 %; Eosinophils # 0.3 K/mcL (0.0-0.6); Eosinophils % 2.7 %; Hematocrit 27.2 % (35.3-44.9); Hemoglobin 8.7 g/dL (11.5-15.4); Lymphocytes # 1.3 K/mcL (0.6-4.6); Lymphocytes % 12.1 %; Mean Corpuscular Hemoglobin 32.1 pg (28.0-33.3); Mean Corpuscular Volume 100.4 fL (83.0-100.0); Mean Platelet Volume 9.3 fL (9.4-12.4); Monocytes # 0.5 K/mcL (0.0-1.3); Monocytes % 4.7 %; Neutrophils # 8.5 K/mcL (1.6-8.9); Platelet Count 223 K/mcL (140-400); Red Blood Count 2.71 M/mcL (3.82-4.97); Red Cell Distribution Width 15.1 % (11.5-14.5); Segmented Neutrophils % 79.2 %; White Blood Count 10.7 K/mcL (4.3-11.1)
[2019-12-03 05:56] LABS: Calcium 7.2 mg/dL (8.6-10.3); Potassium 3.6 mEq/L (3.5-5.1)
[2019-12-03 07:07] VITALS: BP 169/70
[2019-12-03] MEDS: carvediloL 6.25 MG TABLET PO SCH (08:24)
[2019-12-03] MEDS: Aspirin Enteric Coated 81 MG Tablet PO SCH (08:24)
[2019-12-03] MEDS: Cholecalciferol (D-3) 1,000 UNIT (25MCG) TABLET PO SCH (08:24)
[2019-12-03] MEDS: Furosemide 40 MG TABLET PO SCH (08:24)
[2019-12-03] MEDS: Gabapentin 100 MG CAPSULE PO SCH (08:25)
[2019-12-03] MEDS: Valsartan 80 MG TABLET PO SCH (08:25)
== END 2019-12-03 12:15 | disposition home or self-care (01) | DRG 871 ==
LOC: 2ANU 12:43 → EMEROOARM 12:43 → SUATTDRO 18:17 → 2ANU 19:35
PROVIDERS: ADMIT Student in an Organized Health Care Education/Training Program; ATTEND Internal Medicine